=== PATIENT | male | born 1940 | race Caucasian/White ===

== ENCOUNTER 2023-09-09 10:10 | Emergency (ER) | payer MEDICARE, SELFPAY ==
[2023-09-09] VITALS (9 sets, daily range): BP systolic 152–191; BP diastolic 70–77; PULSE 53–91; RESP 12–24; TEMP 36.2–36.6; O2SAT 96–98; BMI 20.3
--- NOTE | 2023-09-09 10:11 | CT_ITS ---
We are attempting to reach an attending provider to discuss findings. An addendum with communication details will be sent when the communication is complete. EXAM: CT HEAD WITHOUT INTRAVENOUS CONTRAST CLINICAL INDICATION: Neuro deficit, acute, stroke suspected TECHNIQUE: Multiple axial images were obtained of the head without intravenous contrast. This CT exam was performed using one or more of the following dose reduction techniques: automated exposure control, adjustment of the mA and/or kV according to patient size, and/or use of iterative reconstruction technique. COMPARISON: No relevant prior studies available. FINDINGS: BRAIN AND EXTRA-AXIAL SPACES: 3 mm thick right parafalcine subdural hematoma is noted. No mass effect. No intraparenchymal or intraventricular hemorrhage. Areas of diminished white matter density noted within both cerebral hemispheres suggestive of chronic microvascular change. Prominence of the cortical sulci and ventricles related to volume loss change. BONES/JOINTS: Normal calvarium. SINUSES: Mild mucosal thickening of the right maxillary sinus. MASTOID AIR CELLS: Normal. Clear. CT/STROKE Brain/Head without Cont IMPRESSION: 1. 3 mm thick acute subdural right parafalcine hematoma without mass effect. 2. Senescent changes. Aspect score 10 Electronically Signed: Ladarius Villegas MD at 10:23 EST ,
--- NOTE | 2023-09-09 10:11 | EKG12_ITS ---
Test Reason : POSS STROKE Blood Pressure : / mmHG Vent. Rate : 076 BPM Atrial Rate : 076 BPM P-R Int : 184 ms QRS Dur : 092 ms QT Int : 382 ms P-R-T Axes : 066 -02 068 degrees QTc Int : 429 ms Normal sinus rhythm with sinus arrhythmia Normal ECG Confirmed by Cas Childers ([id number]), photograph editor DORCAS LOZANO ([id number]) on 09/10/2023 10:33:07 AM Referred By: Confirmed By:Cas Childers
--- NOTE | 2023-09-09 10:11 | CT_ITS ---
EXAM: CT ANGIOGRAPHY HEAD AND NECK WITH INTRAVENOUS CONTRAST CLINICAL INDICATION: Neuro deficit, acute, stroke suspected TECHNIQUE: [facility] [place]/head and neck CT angiography protocol performed with intravenous contrast. This CT exam was performed using one or more of the following dose reduction techniques: automated exposure control, adjustment of the mA and/or kV according to patient size, and/or use of iterative reconstruction technique. MIP reconstructed images were created and reviewed. CONTRAST: IV 100mL [id number] COMPARISON: No relevant prior studies available. FINDINGS: HEAD: RIGHT ANTERIOR CEREBRAL ARTERY: Normal. No occlusion or significant stenosis. Anterior communicating artery is present. No aneurysm. RIGHT MIDDLE CEREBRAL ARTERY: Normal. No occlusion or significant stenosis. No aneurysm. RIGHT POSTERIOR CEREBRAL ARTERY: Normal. No occlusion or significant stenosis. No aneurysm. RIGHT INTRACRANIAL INTERNAL CAROTID ARTERY: Normal. No significant stenosis. No dissection or occlusion. RIGHT INTRACRANIAL VERTEBRAL ARTERY: Normal. No significant stenosis. No dissection or occlusion. LEFT ANTERIOR CEREBRAL ARTERY: Normal. No occlusion or significant stenosis. No aneurysm. LEFT MIDDLE CEREBRAL ARTERY: Normal. No occlusion or significant stenosis. No aneurysm. LEFT POSTERIOR CEREBRAL ARTERY: Normal. No occlusion or significant stenosis. No aneurysm. LEFT INTRACRANIAL INTERNAL CAROTID ARTERY: Normal. No significant stenosis. No dissection or occlusion. LEFT INTRACRANIAL VERTEBRAL ARTERY: Normal. No significant stenosis. No dissection or occlusion. BASILAR ARTERY: Normal. No occlusion or significant stenosis. No aneurysm. OTHER VASCULATURE: No vascular malformation. NECK: RIGHT COMMON CAROTID ARTERY: Normal. No significant stenosis. No dissection or occlusion. RIGHT EXTRACRANIAL INTERNAL CAROTID ARTERY: Normal. No significant stenosis. No dissection or occlusion. RIGHT EXTERNAL CAROTID ARTERY: Normal. No occlusion. RIGHT EXTRACRANIAL VERTEBRAL ARTERY: Normal. No significant stenosis. No dissection or occlusion. LEFT COMMON CAROTID ARTERY: Normal. No significant stenosis. No dissection or occlusion. LEFT EXTRACRANIAL INTERNAL CAROTID ARTERY: Minimal calcification at the left carotid bulb. No significant stenosis. No dissection or occlusion. LEFT EXTERNAL CAROTID ARTERY: Normal. No occlusion. LEFT EXTRACRANIAL VERTEBRAL ARTERY: Normal. No significant stenosis. No dissection or occlusion. BRACHIOCEPHALIC AND SUBCLAVIAN ARTERIES: Unremarkable as visualized. No occlusion or significant stenosis. LUNG APICES: Unremarkable as visualized. HEAD and NECK: BONES/JOINTS: Normal. No discrete lytic or blastic abnormalities. SOFT TISSUES: Normal. CAROTID STENOSIS REFERENCE USING NASCET CRITERIA: % ICA stenosis = (1 - narrowest ICA diameter/diameter of distal cervical ICA) x 100. Mild - <50% stenosis. Moderate - 50-69% stenosis. Severe - 70-94% stenosis. Near occlusion - 95-99% stenosis. Occluded - 100% stenosis. CT/STROKE CTA Head AND Neck W/Con IMPRESSION: No acute findings in the arteries of the head and neck. Stable small right parafalcine subdural hematoma as previously described. N.B. : The above Results were Read Back by Ladarius Villegas MD to Matt Pete MD, and understanding confirmed on 09/09/2023 10:44:31 (ET). Electronically Signed: Ladarius Villegas MD at 10:45 EST ,
--- NOTE | 2023-09-09 10:14 | EDS_ITS ---
HPI History of Present Illness Chief Complaint: Stroke Alert Detail of Chief Complaint: Difficulty using left lower extremity Informant: patient and family Onset/Context/Timing Onset: Yesterday (1400) Context: Sudden Onset Timing: Continuous Quality and Location: Positive for Left Leg Weakness Onset: 1400 on September 07 Current Severity: Mild Maximum Severity: Mild Worsened by: Nothing Relieved by: Nothing Associated Symptoms Associated Symptoms: Negative for Headache, Nausea, Vomiting or Chest Pain Narrative Narrative: Patient 83-year-old male with history of leaky heart valves and prior stroke on baby aspirin a day. Cardiology recommended pacemaker however he declined. Patient's symptoms started yesterday. He is having difficulty using his left leg. He denies pain. He denies paresthesia, anesthesia. He denies headache, visual, ocular auditory symptoms. Nuys trouble with speech or swallowing. He denies cardiac or respiratory symptoms. Denies GI symptoms. Prior similar symptoms: No Recent Illness/Hospitalization: No PFSH PFSH Medical History (Updated 09/09/23 @ 10:[address] Matt Pete MD) Stroke Home Medications aspirin 81 mg chewable tablet 81 mg PO DAILY@0800 02/16/17 [History Last Taken Unknown] Allergy/AdvReac Type Severity Reaction Status Date / Time No Known Allergies Allergy Verified 09/09/23 10:18 Social History (Updated 09/09/23 @ 10:[address] Matt Pete MD) Smoking Status: Never smoker substance use type: does not use ROS ROS ED Constitutional Constitutional ED: Denies chills, fever(s), subjective or sweats Eyes Eyes: Denies blurry vision or change in vision ENT ENT ED: Denies ear pain, rhinorrhea or sore throat Cardiovascular Cardiovascular: Denies chest pain, palpitations, paroxysmal nocturnal dyspnea or racing heartbeat Respiratory/Chest Respiratory/Chest: Denies cough, dyspnea, dyspnea on exertion or paroxysmal nocturnal dyspnea Gastrointestinal Gastrointestinal: Denies abdominal pain, nausea or vomiting Musculoskeletal Musculoskeletal: Denies arthralgias, back pain, myalgias or neck pain Integumentary Denies rash Neurologic Neurologic: Reports weakness; Denies headache(s) or paresthesias Hematologic/Lymphatic Hematologic/Lymphatic: Denies easy bruising EXAM Physical Exam Const Vital Signs: 09/09/23 10:14 09/09/23 10:25 09/09/23 10:32 Temperature 97.1 F L Temperature Source Temporal Pulse Rate 59 L Respiratory Rate 16 Blood Pressure Blood Pressure Mean Pulse Ox 96 97 Oxygen Delivery Method Room Air Room Air Room Air 09/09/23 10:33 09/09/23 10:27 Temperature 97.1 F L 97.5 F L Temperature Source Temporal Temporal Pulse Rate 75 61 Respiratory Rate 20 H 12 Blood Pressure 191/70 H 187/72 H Blood Pressure Mean 110 110 Pulse Ox 97 98 Oxygen Delivery Method Room Air Room Air Positive well nourished and well developed General Appearance ED: well developed and NAD HEENT Reports moist mucous membranes atraumatic Eyes PERRL and EOMs intact bilaterally Eyes Narrative: There is no nystagmus. General Eye ED: Negative for pale conjunctiva or scleral icterus Neck no lymphadenopathy, supple and no JVD Chest Wall inspection of chest normal and palpation of chest normal Resp normal respiratory effort and clear to auscultation bilaterally Cardio Rate: regular rate Rhythm: regular rhythm Heart Sounds: S1 normal and S2 normal GI normal to inspection, nondistended, normoactive bowel sounds, soft to palpation, non-tender, non-distended and no masses Back/Spine no CVA tenderness Extremity normal to inspection General Extremety ED: Negative for deformity or edema General Extremity: Negative for deformity or edema Neuro oriented x3, CN's II-XII intact bilaterally and no sensory deficits noted [place] Coma Scale: document GCS findings Spontaneous Obeys Commands Oriented 15 Sensorium / Orientation: alert Speech: speech normal Gait (Neuro): Negative for normal gait Psych mental status grossly normal Skin no wounds General Skin Exam: Negative for jaundice Lesions: no lesions Rashes: no rashes NIHSS NIHSS Initial: 1a Level of Consciousness: 0 1b LOC Questions (Score 2 if aphasic/stupor): 0 1c LOC Commands (Only score 1st attempt): 0 2 Best Gaze (If aphasic, use reflexive mvmts.): 0 3 Visual: 0 4 Facial Palsy: 0 5 Motor Arm Right (UN = amputation/fusion): 0 5 Motor Arm Left: 0 6 Motor Leg Right: 0 6 Motor Leg Left: 0 7 Limb ataxia (Only + if out of proportion): 0 8 Sensory (Aphasia/stupor=0 or 1, coma=2): 0 9 Best Language: 0 10 Dysarthria (mute, coma=2, intubated=UN): 0 11 Extinction and Inattention (only scored if +): 0 Total Score: 0 MDM MDM MDM Narrative Medical decision making narrative: Patient gait is not normal. It is not ataxic. He appears to have weakness left lower extremity. Stroke alert was called from triage. Patient is able to walk on heels and toes. He is able to perform 1 legged squat right and left. Will need to assess for visual field cuts since this was not performed in triage. Stroke alert was called since he is within 24 hours. Suspect this is small v essel disease and not an LVO since his deficit is minimal. However with history of valvular heart disease prior stroke he may have significant atherosclerotic disease with hemodynamic significant narrowing and for this reason. Recommendation per [facility] will obtain CTA. Lab Data Labs: Laboratory Results - last 24 hr 09/09/23 10:18 WBC 6.5 RBC 3.85 L Hgb 12.2 L Hct 38.1 L MCV 99.0 H MCH 31.7 MCHC 32.0 RDW Std Deviation 42.7 RDW Coeff of Nguyen 11.8 Plt Count 160 MPV 10.4 Immature Gran % (Auto) 0.600 Neut % (Auto) 66.3 Lymph % (Auto) 21.4 Armstrong % (Auto) 7.7 Eos % (Auto) 3.5 Baso % (Auto) 0.5 Absolute Neuts (auto) 4.3 Absolute Lymphs (auto) 1.39 Nucleated RBC % 0 PT 13.8 INR 1.1 APTT 27.1 Radiography Diagnostic Testing: Clinical Impression(s) from Imaging Studies Brain CT 09/09/23 10:11 IMPRESSION: 1. 3 mm thick acute subdural right parafalcine hematoma without mass effect. 2. Senescent changes. Aspect score 10 Electronically Signed: Ladarius Villegas MD at 10:23 EST , ADDENDUM: 09/09/23 1032 IMPRESSION: 1. 3 mm thick acute subdural right parafalcine hematoma without mass effect. 2. Senescent changes. Aspect score 10 N.B. : The above Results were Read Back by Ladarius Villegas MD to Matt Pete MD, and understanding confirmed on 09/09/2023 10:26:02 (ET). Electronically Signed: Ladarius Villegas MD at 10:23 EST , Management Discussion w/another healthcare provider: Financial Underwriter (Spoke with Dr. Ontiveros who agrees there is a small subdural.), Radiologist (Received call by radiologist which reveals a small subdural. Patient recalls hitting his head. He was excepted by [facility].) and Other (ER to ER transfer, Dr. NOLEN is the accepting physician) Treatment and Re-Evaluation Narrative: Patient has elevated blood pressures. Hemorrhagic stroke order set was initiated. Patient does admit to trauma this morning. Symptoms started yesterday afternoon. He does not recall any head trauma yesterday. Stroke Documentation Questions Stroke Team Activated: Yes Reviewed Inclusion/Exclusion criteria: Yes IV Thrombolytic Administered: No No contraindications from thrombolytic administration: No Critical Care Time Critical Care Time: Yes Critical care time (excluding procedures): 30-74 minutes (31), Including time spent: (History, physical, documentation, discussion with patient and family), Discussing w/Patient &/or Family/Senior Financial Reporting Analyst, Discussing w/Consultants (Radiologist, [facility] neurologist, transfer center nurse), Arranging Admission or Transfer, Performing Direct Patient Care at Bedside and - (Blood pressure control with Cardene drip.) Discharge Plan Triage Chief Complaint: Stroke Alert ED Provider: Matt Pete Dx/Rx/DC Orders Clinical Impression: Acute subdural hematoma, Valvular heart disease, Hypertensive urgency, History of arterial ischemic stroke Prescriptions: No Action aspirin 81 MG tablet,chewable 81 mg PO DAILY@0800 Primary Care Provider: Hakeem Canales Referrals: Hakeem Canales MD [Primary Care Provider] - Disposition Disposition: Acute Care Hospital Discharge Location: [facility]
[2023-09-09 10:27] LABS: Absolute Lymphocyte Count 1.39 X10^3/uL (0.83-4.51); Absolute Neutrophil Count 4.3 X10^3/uL (2.0-7.7); Basophil# 0.03 X10^3/uL; Basophil% 0.5 % (0-1); Eosinophil# 0.23 X10^3/uL; Eosinophils% 3.5 % (0-5); Hematocrit 38.1 % (40-54); Hemoglobin 12.2 g/dL (13.0-16.5); Lymphocyte # 1.39 X10^3/ul (0.83-4.51); Lymphocyte % 21.4 % (19-41); Mean Corpuscular Hgb 31.7 pg (27.0-32.0); Mean Platelet Vol. 10.4 fl (6.2-12.0); Monocyte% 7.7 % (0-10); NRBC Flagged by Analyzer 0 % (0-5); Neutrophil # 4.32 X10^3/uL (2.7-7.7); Neutrophil % 66.3 % (47-70); Platelet Count 160 K/mm3 (150-450); RBC Distribution Width CV 11.8 % (11.6-14.6); RBC Distribution Width SD 42.7 fl (35.1-43.9); Red Blood Count 3.85 M/mm3 (4.6-6.2); White Blood Count 6.5 K/mm3 (4.4-11.0)
--- OUTSIDE RECORDS SUMMARY | 2023-09-09 10:27 | XMS RPT_ITS | CCD ---
Author Name Unknown Address [address] [facility] [place] [address] Organization [facility] Care Team Providers Care Turkey Roll Maker Name Role Phone Hakeem Stevens Unavailable Unavailable Unavailable Hakeem Stevens MD Primary Care Provider Hakeem Stevens MD Unavailable [phone] MD HAKEEM STEVENS Attending MD HAKEEM Raines Primary Care UnavailDr. Oz Beaver Attending Unavailable Sonu, Dr. Clinton Referring Unavailable Ally, Dr. Hakeem Verdugo Primary Care Unavailab cristi Stevens, Dr. Hakeem Verdugo Attending Unavailab cristi Stevens, Dr. Hakeem Verdugo Referring Unavailab cristi Stevens, Dr. Hakeem Verdugo Primary Care Unavailab HAKEEM Sanford Attending Unavailable HAKEEM STEVENS Primary Care Unavailable MARCO ANTONIO SPANGLER Attending Unavail able HAKEEM STEVENS Primary Care Unavailable BENNIE MAY II Attending HAKEEM Raines Primary Care Unavailable Medications Current Medications Medication Drug Class(es) Dates Sig (Normalized) Sig (Original) glucosamine hydrochloride 750 mg oral tablet (8 sources) take 1 tablet by mouth twice daily glucosamine HCl 750 mg tablet Take 1 tablet by mouth 2 times a day. 0 Active Completed/Discontinued Medications Medication Drug Class(es) Dates Sig (Normalized) Sig (Original) amoxicillin 500 mg oral capsule (3 sources) Penicillin-class Antibacterial Start: 07-06-2022 End: 11-17-2022 take 1 capsule by mouth three times daily Amoxicillin 500 MG Oral Capsule TAKE 1 CAPSULE 3 times daily Quantity: 30 Refills: 2 Ordered: 07-Aug-2022 Hakeem Stevens MD Start : 06-Jul-2022 End : 17-Nov-2022 Complete aspirin 81 mg delayed release oral tablet (10 sources) Platelet Aggregation Inhibitor, Nonsteroidal Anti-inflammatory Drug Start: 07-05-2021 take 1 tablet by mouth once daily Aspirin 81 MG Oral Tablet Delayed Release TAKE 1 TABLET DAILY DIRECTED. Quantity: 30 Refills: 5 Ordered: 05-Jul-2021 DO Start : 05-Jul-2021 Active Problems Active Problems Problem Classification Problem Date Documented Date Episodic/Chronic Acute cerebrovascular disease (8 sources) Cerebrovascular accident; Translations: [Cerebral artery occlusion, unspecified with cerebral infarction] Chronic Cardiac dysrhythmias (6 sources) Bradycardia; Translations: [Other specified cardiac dysrhythmias] Episodic Cataract (16 sources) Bilateral senile combined form cataracts of eyes; Translations: [Other and combined forms of senile cataract] Onset: 07-05-2021 07-10-2023 Chronic Chronic kidney disease (9 sources) Chronic kidney disease stage 3A ; Translations: [Chronic kidney disease, Stage III (moderate)] Onset: 07-10-2023 07-10-2023 Chronic Chronic kidney disease (2 sources) Chronic kidney disease; Translations: [Chronic kidney disease, stage 3a (CMS/HCC)] Onset: 07-10-2023 Disorders of teeth and jaw (3 sources) Chronic gingivitis; Translations: [Chronic gingivitis, plaque induced] Chronic Genitourinary symptoms and ill-defined conditions (2 sources) Nocturia; Translations: [Nocturia] Onset: 07-10-2023 Episodic Heart valve disorders (7 sources) Nonrheumatic mitral (valve) insufficiency; Translations: [Moderate mitral insufficiency] Onset: 07-10-2023 07-10-2023 Chronic Hyperplasia of prostate (12 sources) Nocturia due to benign prostatic hypertrophy; Translations: [Hypertrophy (benign) of prostate with urinary obstruction and other lower urinary tract symptoms (LUTS)] Onset: 07-10-2023 07-10-2023 Chronic Inflammation; infection of eye (except that caused by tuberculosis or sexually transmitteddisease) (5 sources) Bilateral punctate keratitis of eyes; Translations: [Punctate keratitis] Chronic Other aftercare (13 sources) Patient encounter status; Translations: [Long-term (current) use of other medications] Episodic Other circulatory disease (10 sources) History of cerebrovascular accident; Translations: [Personal history of transient ischemic attack (TIA), and cerebral infarction without residual deficits] Onset: 07-10-2023 07-10-2023 Episodic Other circulatory disease (2 sources) Personal history of transient ischemic attack (TIA), and cerebral infarction without residual deficits; Translations: [Personal history of transient ischemic attack (TIA), and cerebral infarction without residual deficits] Onset: 07-10-2023 Episodic Other connective tissue disease (1 source) Other specified soft tissue disorders; Translations: [Other specified soft tissue disorders] Onset: 11-16-2022 Episodic Other ear and sense organ disorders (3 sources) Impacted cerumen; Translations: [Impacted cerumen] Episodic Other eye disorders (7 sources) Constricted pupil; Translations: [Miosis (persistent), not due to miotics] Onset: 07-10-2023 07-10-2023 Chronic Other eye disorders (2 sources) Miosis; Translations: [Miosis] Onset: 07-10-2023 Chronic Varicose veins of lower extremity (7 sources) Varicose veins of lower limb co-occurrent with edema; Translations: [Varicose veins of right lower extremity with other complications] Onset: 11-16-2022 11-10-2022 Episodic Past or Other Problems Problem Classification Problem Date Documented Da te Episodic/Chronic Unclassified (2 sources) Onset: 11-10-2022 Resolved: 07-10-2023 11-10-2022 Results Test Name Value Interpretation Reference Range Facil ity Vital Signs Date Time Vital Sign Value Performing Clinician Faci lity 07-10-2023 08:00-0500 Body height 162.6 cm Hakeem Stevens MD Work Phone: [facility] 07-10-2023 08:00-0500 Body mass index (BMI) [Ratio] 21.63 kg/m2 Hakeem Stevens MD Work Phone: [facility] 07-10-2023 08:00-0500 Body weight 57.15 kg Hakeem Stevens MD Work Phone: [facility] 07-10-2023 08:00-0500 Diastolic blood pressure 70 mm[Hg] Hakeem Stevens MD Work Phone: [facility] 07-10-2023 08:00-0500 Heart rate 62 /min Hakeem Stevens MD Work Phone: [facility] 07-10-2023 08:00-0500 SaO2% (BldA) [Mass fraction] 96 % Hakeem Stevens MD Work Phone: [facility] 07-10-2023 08:00-0500 Systolic blood pressure 134 mm[Hg] Hakeem Stevens MD Work Phone: [facility] 11-17-2022 13:32-0400 Body height 162.56 cm Hakeem Stevens Work Phone: PS-Yanpramsjk-[address]yp[address] Work Phone: 11-17-2022 13:32-0400 Body mass index (BMI) [Ratio] 21.13 kg/m2 Hakeem Stevens Work Phone: CA-Amqdpzboiw-Clyjp [address] Work Phone: 11-17-2022 13:32-0400 Body surface area Derived from formula 1.59 m2 Hakeem Stevens Work Phone: NY-Gbjyxifxrw-Hzjei [address] Work Phone: 11-17-2022 13:32-0400 Body weight 55.85 kg Hakeem Stevens Work Phone: FO-Ssapakltew-Wbsdy [address] Work Phone: 11-17-2022 13:32-0400 Diastolic blood pressure 78 mm[Hg] Hakeem Stevens Work Phone: LB-Wqxnnkebzn-Nmknz [address] Work Phone: 11-17-2022 13:32-0400 Heart rate 63 /min Hakeem Stevens Work Phone: RW-Wximlwjnvw-Ubmez [address] Work Phone: 11-17-2022 13:32-0400 SaO2% (BldA) [Mass fraction] 97 % Hakeem Paintinger Work Phone: LZ-Vfgpqvdgcp-Bjlda [address] Work Phone: 11-17-2022 13:32-0400 Systolic blood pressure 158 mm[Hg] Hakeem Sean Paintinger Work Phone: UD-Wabifhlgtc-Yjhga [address] Work Phone: 11-10-2022 15:11-0400 Body height 162.6 cm Marco Antonio Spangler MD MPH Work Phone: [facility] 11-10-2022 15:11-0400 Body mass index (BMI) [Ratio] 21.34 kg/m2 Marco Antonio Spangler MD MPH Work Phone: [facility] 11-10-2022 15:11-0400 Body weight 56.38 kg Marco Antonio Spangler MD MPH Work Phone: [facility] 11-10-2022 15:11-0400 Diastolic blood pressure 85 mm[Hg] Marco Antonio Spangler MD MPH Work Phone: [facility] 11-10-2022 15:11-0400 Heart rate 56 /min Marco Antonio Spangler MD MPH Work Phone: [facility] 11-10-2022 15:11-0400 SaO2% (BldA) [Mass fraction] 95 % Marco Antonio Spangler MD MPH Work Phone: [facility] 11-10-2022 15:11-0400 Systolic blood pressure 154 mm[Hg] Marco Antonio Spangler MD MPH Work Phone: [facility] 07-06-2022 09:44-0500 Body height 162.56 cm Hakeem Stevens Work Phone: [facility] Work Phone: 07-06-2022 09:44-0500 Body mass index (BMI) [Ratio] 21.46 kg/m2 Hakeem O Stevens Work Phone: [facility] Work Phone: 07-06-2022 09:44-0500 Body surface area Derived from formula 1.6 m2 Hakeem O Stevens Work Phone: [facility] Work Phone: 07-06-2022 09:44-0500 Body weight 56.7 kg Hakeem O Stevens Work Phone: [facility] Work Phone: 07-06-2022 09:44-0500 Diastolic blood pressure 70 mm[Hg] Hakeem O Stevens Work Phone: [facility] Work Phone: 07-06-2022 09:44-0500 Heart rate 56 /min Hakeem O Stevens Work Phone: [facility] Work Phone: 07-06-2022 09:44-0500 Systolic blood pressure 144 mm[Hg] Hakeem O Stevens Work Phone: [facility] Work Phone: 10-18-2021 09:16-0400 Body height 162.56 cm Hakeem O Stevens Work Phone: LC-Mjprobgvht-Nwawr [address] Work Phone: 10-18-2021 09:16-0400 Body mass index (BMI) [Ratio] 22.36 kg/m2 Hakeem O Stevens Work Phone: WZ-Jwmkfdfstz-Wdfpn [address] Work Phone: 10-18-2021 09:16-0400 Body surface area Derived from formula 1.63 m2 Hakeem O Stevens Work Phone: RO-Hnkgcjegth-Ecgty nd [address] Work Phone: 10-18-2021 09:16-0400 Body weight 59.08 kg Hakeem O Stevens Work Phone: ZF-Mkijjgdfdr-Kzvkv nd [address] Work Phone: 10-18-2021 09:16-0400 Diastolic blood pressure 82 mm[Hg] Hakeem O Stevens Work Phone: OG-Dsvwaiifiu-Rijjh nd [address] Work Phone: 10-18-2021 09:16-0400 Heart rate 54 /min Hakeem O Stevens Work Phone: PP-Xtypbfvqmr-Rqlks nd [address] Work Phone: 10-18-2021 09:16-0400 SaO2% (BldA) [Mass fraction] 97 % Hakeem O Stevens Work Phone: TJ-Kkximkdaxi-Sjqki nd [address] Work Phone: 10-18-2021 09:16-0400 Systolic blood pressure 124 mm[Hg] Hakeem O Stevens Work Phone: WE-Maabzevmhw-Jekxy nd [address] Work Phone: 08-16-2021 15:49-0500 Body height 160.02 cm Hakeem O Stevens Work Phone: QI-Jrkedhjtaz-Vjihp nd [address] Work Phone: 08-16-2021 15:49-0500 Body mass index (BMI) [Ratio] 23.21 kg/m2 Hakeem O Stevens Work Phone: DJ-Anfsngdrwl-Vhvkr [address] Work Phone: 08-16-2021 15:49-0500 Body surface area Derived from formula 1.62 m2 Hakeem O Stevens Work Phone: DA-Decytobzmb-Qpgat nd [address] Work Phone: 08-16-2021 15:49-0500 Body temperature 97.5 [degF] Hakeem Sean ArchibaldStevens Work Phone: RH-Zamimsttjj-Ghdvn nd [address] Work Phone: 08-16-2021 15:49-0500 Body weight 59.42 kg Hakeem O Stevens Work Phone: ML-Gloeekbvux-Hdaic nd [address] Work Phone: 08-16-2021 15:49-0500 Diastolic blood pressure 68 mm[Hg] Hakeem O Stevens Work Phone: VB-Inrbkpuuiv-Lzpnj nd [address] Work Phone: 08-16-2021 15:49-0500 Heart rate 59 /min Hakeem Sean ArchibaldStevens Work Phone: WB-Cwyyaklcfp-Zhcvd nd [address] Work Phone: 08-16-2021 15:49-0500 SaO2% (BldA) [Mass fraction] 97 % Hakeem Sean ArchibaldStevens Work Phone: VE-Ciexudyzqk-Fnzaw nj [address] Work Phone: 08-16-2021 15:49-0500 Systolic blood pressure 160 mm[Hg] Hakeem Sean ArchibaldStevens Work Phone: WZ-Xbxewoygul-Hnshw nj [address] Work Phone: 07-05-2021 13:05-0500 Body height 162.56 cm Hakeem Sean Stevens Work Phone: [facility] Work Phone: 07-05-2021 13:05-0500 Body mass index (BMI) [Ratio] 21.8 kg/m2 Hakeem O Stevens Work Phone: [facility] Work Phone: 07-05-2021 13:05-0500 Body surface area Derived from formula 1.61 m2 Hakeem O Stevens Work Phone: [facility] Work Phone: 07-05-2021 13:05-0500 Body weight 57.61 kg Hakeemnati Archibaldyder Work Phone: [facility] Work Phone: 07-05-2021 13:05-0500 Diastolic blood pressure 68 mm[Hg] Hakeem O Ally Work Phone: [facility] Work Phone: 07-05-2021 13:05-0500 Heart rate 60 /min Hakeem Archibaldyder Work Phone: [facility] Work Phone: 07-05-2021 13:05-0500 Systolic blood pressure 140 mm[Hg] Hakeem Archibaldyder Work Phone: [facility] Work Phone: Encounters Encounter Date Encounter Type Care Provider Facility Start: 07-25-2023 End: 07-25-2023 ambulatory BENNIE DEEPIKA Facility:[facility] Start: 07-10-2023 End: 07-10-2023 ambulatory [facility] Start: 07-10-2023 End: 07-10-2023 Encounter for general adult medical examination without abnormal findings [facility] Start: 07-10-2023 End: 07-10-2023 Assay of hemosiderin, quant Hakeem Stevens MD Work Phone: [facility] Work Phone: Start: 07-10-2023 End: 07-10-2023 Office outpatient visit 25 minutes Hakeem Stevens MD Work Phone: [facility] Procedures Date Procedure Procedure Detail Performing Clinician Start: 11-10-2022 Follow-up visit Start: 07-07-2021 Lipid 1996 panel - S osman or Plasma Marco Antonio Spangler MD MPH Work Phone: Cataract surgery Hakeem castro Work Phone: Plan of Treatment Date Care Activity Detail Author Start: 07-07-2026 Lipid panel Lipid Panel [facility] Start: 11-23-2023 FUV, Provider: Oz Ascencio, Status: Pen, Time: 1:00 PM FUV, Provider: Oz Ascencio, Status: Pen, Time: 1:00 PM KR-Yvouuyiaij-[address] Work Phone: Start: 11-23-2023 End: 11-23-2023 Patient encounter procedure 11/23/2023 1:00 PM EDT Office Visit [facility] [address] [place] [id number] Oz Ascencio MD [address], [facility] [address] [place], [place] [id number] [facility] Start: 07-10-2023 End: 07-10-2024 CBC panel - Blood by Automated count CBC Lab Routine Stage 3a chronic kidney disease (CMS/HCC) Expected: 07/10/2023 (Approximate), Expires: 07/10/2024 [facility] Service Area Work Phone: Immunizations Immunization Date Immunization Notes Care Provider Fa stefan 12-30-2020 Moderna COVID-19 Vac cine 100 MCG/0.5ML Intramuscular Suspension Hakeem Stevens Work Phone: [facility] Work Phone: Payers Date Payer Category Payer Medicare [employer] MEDICARE [employer] G[employer] CHOICE [id number] 2018-Present [address] [address] [place] [address] [id number] 2018 Private Health Insurance [id number] 1940 Unknown [id number] 1940 Unknown [id number] 1940 Unknown [id number] 1940 Unknown [id number] 1940 Unknown [id number] Unknown [employer] G[employer] CHOICE Social History Date Type Detail Facility Start: 11-10-2022 End: 07-10-2023 Never a smoker Never a smoker [facility] Work Phone: Start: 11-10-2022 Tobacco smoking stat NHIS Never smoked tobacco [facility] Work Phone: Start: 11-10-2022 Tobacco use and exposure Smokeless tobacco non-user [facility] Work Phone: Start: 11-10-2022 End: 07-10-2023 Alcohol intake Current drinker of alcohol (finding) [facility] Work Phone: Start: 11-10-2022 End: 07-10-2023 Tobacco use panel [facility] Work Phone: Start: 11-10-2022 Alcohol Comment 1 a day [facility] Work Phone: Start: 1940 Sex Assigned At Not on file [facility] Work Phone: Start: 10-31-2022 End: 07-10-2023 Exposure to SARS-CoV-2 (event) Not sure [facility] Medical Equipment Procedure Code Equipment Code Equipment Origin al Text Equipment Identifier Dates Lens, Intraocula r [id number] 21.5 Case [id number] Start: 08-04-2021 Clinical Notes 08-16-2001 to 07-25-2023 Hakeem Stevens MD - 07/10/2023 8:00 AM Trinity Spangler MD MPH - 11/10/2022 3:00 PM EDT Note Date & Type Note Facility 07-25-2023 Note HNO ID: [id number] Author: BENNIE MAY II, OD Service: ? 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 Monitor for progression in one year. 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 H52.4 Presbyopia Comment: Patient uses a magnifier on occasion for near. 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 Ocular exam unremarkable for pemphigoid. Recommend use of Systane Complete daily for dryness. I have confirmed and edited as necessary the relevant ophthalmic history, ROS, and the neuro exam findings as obtained by others. I have seen and examined Eladia Farr. I have discussed the case and the management of this patient's care with the Resident/Fellow, if applicable. I also have reviewed and agree with the assessment and plan as stated above and agree with all of its relevant components. Bennie May II, [facility] 07-10-2023 History of Present illness Narrative Subjective Reason for Visit: Eladia Farr is an 83 y.o. male here for a Medicare Wellness visit. Past Medical, Surgical, and Family History reviewed and updated in chart. Reviewed all medications by prescribing practitioner or clinical pharmacist (such as prescriptions, OTCs, herbal therapies and supplements) and documented in the medical record. HPI No visits to ER or Hospital in the last year. Only medication is ASA. Had CVA 20 years ago. Has been told he has some leaky valves. BPH - nocturia X 2. No daytime issues Cataract on left and Pseudophakia on the right. Constricted pupil on right CKD 3a GFR 49 a year ago. Will check today. No bloodl. No NSAID. Varicose veins have been not a problem. Potassium helps the aching..right leg edema. Living Will and DPA - Annie. Declines immunizations Patient Care Team: Hakeem Stevens MD as PCP - General Hakeem Stevens MD as PCP - [employer]age PCP Review of Systems Objective Vitals: BP 134/70 (BP Location: Left arm, Patient Position: Sitting) Pulse 62 Ht 1.626 m (5' 4 ) Wt 57.2 kg (126 lb) SpO2 96% BMI 21.63 kg/m Physical Exam Vitals reviewed. Constitutional: General: He is not in acute distress. Appearance: Normal appearance. HENT: Head: Normocephalic. Right Ear: Tympanic membrane, ear canal and external ear normal. Left Ear: Tympanic membrane, ear canal and external ear normal. Nose: Nose normal. Mouth/Throat: Pharynx: Oropharynx is clear. Eyes: Extraocular Movements: Extraocular movements intact. Conjunctiva/sclera: Conjunctivae normal. Comments: Right pupil slightly smaller than left Neck: Vascular: No carotid bruit. Cardiovascular: Rate and Rhythm: Normal rate and regular rhythm. Pulses: Normal pulses. Heart sounds: Normal heart sounds. No murmur heard. Comments: Varicose veins not tender Pulmonary: Effort: Pulmonary effort is normal. No respiratory distress. Breath sounds: Normal breath sounds. Abdominal: General: Abdomen is flat. Bowel sounds are normal. There is no distension. Palpations: Abdomen is soft. There is no mass. Tenderness: There is no abdominal tenderness. Musculoskeletal: Cervical back: Normal range of motion and neck supple. No tenderness. Right lower le+ Edema present. Left lower leg: No edema. Lymphadenopathy: Cervical: No cervical adenopathy. Skin: General: Skin is warm and dry. Findings: No rash. Neurological: General: No focal deficit present. Mental Status: He is alert and oriented to person, place, and time. Psychiatric: Mood and Affect: Mood normal. Thought Content: Thought content normal. Judgment: Judgment normal. 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 male who presents for Sick (Right Leg Swollen. Doesn't recall when it started but denies it bothering him. Denies sweeping. Denies any injury to the leg or falling. ). HPI Reports last week someone commented about swelling in his right lower extremity. Does not think he noticed it prior to that. Denies calf pain. He is very active and mobile. Has not had any recent long distance travel. Never had a history of DVT. Plan: US for DVT eval. Likely due to varicose veins. Recommended compression stockings. Discussed about the potential complications of varicose veins. Offered referral to vascular surgeon. They will let us know if they decide and I will put in the referral then. Recommended to seek immediate medical attention if acute worsening of symptoms. Review of Systems ROS negative except discussed above in HPI. Vitals: 11/10/22 1511 BP: 154/85 Pulse: 56 SpO2: 95% Objective Physical Exam Right lower extremity edema noticed. More than left. Significant varicose veins noticed in bilateral lower extremities- more on the right than left. Assessment/Plan Eladia was seen today for sick. 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 (Primary) - Vascular US upper extremity venous duplex right; Future Follow up as needed Marco Antonio Spangler MD MPH documented in this encounter [facility] Work Phone: 10-25-2021 History of Present illness Narrative 82-year-old gentleman with a medical history of CVA, chronic kidney disease, who has been following with EP for asymptomatic bradycardia here to establish care regarding the following conditions:Problem #1 abnormal echocardiogram-Echocardiogram dated 10/25/2021 showed preserved biventricular function and mild-moderate mitral regurgitation-Mild aortic regurgitation was also notedProblem #2 asymptomatic bradycardia-Patient follows with EPCurrently denies any chest pain or shortness of breath. Denies any orthopnea/PND/lower extremity edema. Denies any dizziness or lightheadedness. Notes that he has had bradycardia for about 30 years. [place]Rtlps[facility] [employer] Work Phone: 07-05-2006 History of Present illness Narrative APPLICATIONS ANALYST to AFPWas patient here many years ago and no medical care sinceDid have broken right forearm from a tire blowing up about 15 years agoCVA about 20-30 years agoWas numb and weak on left. Was given streptokinase and was resolved by the time he got to the hospitalNow to have eye surgery for cataract and needs to have medical check for thatHas been healthyNo meds except ASA 81 dailyDoes not know cholesterol but takes Lookeba - 3 FA and B12 and D3.Systane for dry eyes as well as Fluorometholone. [facility] Work Phone: 10-18-2001 History of Present illness Narrative 81-year-old man with a history of CVA, CKD stage III, cataract status post surgery of right presenting for follow up. He reports that since his last visit he has been feeling well, denies any fatigue, CP, SOB, syncope or dizziness.Bradycardia History:Patient states he has had a low heart rate for the last 20 years. He denies any dizziness, chest pain, shortness of breath consciousness or palpitations. 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 He denies any previous history of syncope and states ambulates well and has never had a fall of unknown etiology.He denies any tobacco use, reports drinking 1 can of bud light.A 12 point ROS was done, and negative unless otherwise stated in the HPI. [facility] [employer] Work Phone: 08-24-2001 History of Present illness Narrative 81-year-old man with a history of CVA, CKD stage III, cataract status post surgery of right being referred from primary care physician for bradycardia.Patient states he has had a low heart rate for the last 20 years. He denies any dizziness, chest pain, shortness of breath consciousness or palpitations. 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 He denies any previous history of syncope and states ambulates well and has never had a fall of unknown etiology.He denies any tobacco use, reports drinking 1 can of bud light.A 12 point ROS was done, and negative unless otherwise stated in the HPI. [facility] Work Phone: 08-16-2001 History of Present illness Narrative 81-year-old man with a history of CVA, CKD stage III, cataract status post surgery of right being referred from primary care physician for bradycardia.Patient states he has had a low heart rate for the last 20 years. He denies any dizziness, chest pain, shortness of breath consciousness or palpitations. 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 He denies any previous history of syncope and states ambulates well and has never had a fall of unknown etiology.He denies any tobacco use, reports drinking 1 can of bud light.A 12 point ROS was done, and negative unless otherwise stated in the HPI. [facility] [employer] Work Phone: Chief complaint Narrative -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
[2023-09-09 10:37] LABS: International Normalized Ratio 1.1; Partial Thromboplast Time 27.1 Seconds (24.1-36.2); Prothrombin Time (Protime)PT. 13.8 SECONDS (11.7-14.9)
[2023-09-09] MEDS: hydrALAZINE 20 MG/ML Vial IV ×2 (10:37→11:03)
--- NOTE | 2023-09-09 10:44 | ED.RN ---
RA CALLED, ETA IS WITHIN THE HOUR (BY [phone])
[2023-09-09 10:45] LABS: Anion Gap 2 (5-15); BUN 32 mg/dL (7-18); BUN/Creat Ratio 19.3 RATIO (10-20); Calcium,Total 8.7 mg/dL (8.5-10.1); Chloride 110 mmol/L (98-107); Creatinine, Serum 1.66 mg/dL (0.70-1.30); EST Glomerular Filtration Rate 42 mL/min (>60); Est Glom Filt Rate - Afr Amer 51 mL/min (>60); Glucose 103 mg/dL (74-106); Potassium 4.6 mmol/L (3.5-5.1); Sodium Level 140 mmol/L (136-145); Troponin-I HS 35 pg/mL (3.0-78.0)
--- NOTE | 2023-09-09 10:45 | RAD_ITS ---
EXAM: XR CHEST, 1 VIEW CLINICAL INDICATION: Neuro deficit, acute, stroke suspected TECHNIQUE: Frontal view of the chest. COMPARISON: XR Chest dated 02/16/2017 FINDINGS: LUNGS AND PLEURAL SPACES: Normal. No consolidation or edema. No pneumothorax. No effusion. HEART: Normal heart size. MEDIASTINUM: No mediastinal or hilar mass. BONES/JOINTS: No acute abnormality. RAD/Chest 1 View IMPRESSION: No acute cardiopulmonary abnormality. No interval change. Electronically Signed: Ladarius Villegas MD at 11:07 EST ,
[2023-09-09 10:47] LABS: Bedside Glucose 98 mg/dL (74-106)
== END 2023-09-09 11:41 | disposition short-term general hospital (02) ==
PROVIDERS: Emergency Provider Emergency Medicine; PCP Family Medicine; Visit Provider Emergency Medicine
DX: I62.01 Nontraumatic acute subdural hemorrhage (principal); I16.0 Hypertensive urgency; Z79.82 Long term (current) use of aspirin; Z86.73 Personal history of transient ischemic attack (TIA), and cerebral infarction without residual deficits
CPT/HCPCS: 70450; 70496; 70498; 71045; 80048; 82962; 84484; 85025; 85610; 85730; 93005; 99285; Q9967; A4216

== ENCOUNTER 2023-09-14 18:35 | Inpatient (IN) | payer MEDICARE, SELFPAY ==
--- NOTE | 2023-09-14 19:14 | HP.PCM_ITS ---
[facility] - General General Date of Admission: 09/14/23 Date of Service: 09/14/23 HPI Narrative ELADIA KNAPP, is a 83-year-old M with a past medical history of remote CVA, hypertension, BPH, leaky heart valves and chronic kidney disease stage III who presented to the emergency department at [facility] on 09/09/2023 complaining of difficulty using his left leg, numbness in the left leg and falls. He normally walks without an assistive device and is still working. NIHSS was 0 at presentation to the emergency department. That being said his gait was not normal. He had weakness in his left leg but had no drift on the NIHSS. Significant lab at presentation to the emergency department included a hemoglobin of 12.2. Noncontrast CT brain showed a 3 mm thick acute subdural right parafalcine hematoma without mass effect. The ER physician was in contact with teleneurology at [facility]. The pt admitted to hitting his head that morning but, the leg weakness started the day prior to him hitting his head. BP's were elevated in the ED (180's/80's). Hemorrhagic stroke order set was initiated and he was transferred to [facility]. MRI at [facility] showed a small acute infarct involving the right basal ganglia and adjacent right frontal white matter. 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 Echocardiogram was negative for source of emboli. He was evaluated by neurovascular and they felt the stroke was likely secondary to hypertension and small vessel disease with subdural hematoma likely secondary to trauma from falls/hitting his head. Subdural hematoma remains stable and he required no interventions. He was started on aspirin, Lipitor and amlodipine. He was also started on Flomax for symptoms of BPH. He was also placed on a 7- day course of Keppra for seizure prophylaxis. Therapy recommended discharge to acute inpatient rehab. He was admitted to the acute inpatient rehab unit at [facility] on 09/14/2023 for 3 hours of therapy daily to restore function/independence at or near his level prior to the stroke/subdural hematoma. He will follow-up in the neurovascular clinic at [facility] in 4 to 6 weeks and he was prescribed a 30-day event monitor to help evaluate for paroxysmal arrhythmias. There is documentation in the notes obtained from [facility] that his philosophy faculty member had recommended a pacer maker but he declined. Echocardiogram at [facility] showed the lef t ventricle to be of normal size with an ejection fraction of 65 to 70%. Diastolic function was normal. The right ventricle was normal in size and systolic function. There was no atrial enlargement. He had mild mitral regurgitation and mild aortic regurgitation. The estimated right ventricular systolic pressure was normal at 21. PFSH Medical History (Updated 09/18/23 @ 18:[address] Lorraine Amador, DO) Aortic regurgitation BPH associated with nocturia Chronic renal failure, stage 3b Left inguinal hernia Mitral regurgitation Remote history of stroke Subdural hematoma Home Medications aspirin 81 mg chewable tablet 81 mg PO DAILY@0800 heart health 02/16/17 [History Last Taken 09/14/23 08:45] acetaminophen 500 mg tablet 1,000 mg PO Q8H PRN PAIN 1-10 AND FEVER 09/14/23 [History Last Taken Unknown] aluminum-mag hydroxide-simethicone 200 mg-200 mg-20 mg/5 mL oral susp (Advanced Antacid-Antigas) 5 ml PO Q6H PRN indigestion 09/14/23 [History Last Taken Unknown] amlodipine 10 mg tablet 10 mg PO DAILY heart 09/14/23 [History Last Taken 09/14/23 08:45] atorvastatin 40 mg tablet 40 mg PO QHS cholesterol 09/14/23 [History Last Taken 09/13/23 20:35] ferrous sulfate 325 mg (65 mg iron) tablet (Feosol) 325 mg PO DAILY supplement 09/14/23 [History Last Taken Unknown] glucosamine sulfate 750 mg tablet (Paris) 750 mg PO BID supplement 09/14/23 [History Last Taken Unknown] hydralazine 10 mg tablet 10 mg PO Q4H PRN hypertension 09/14/23 [History Last Taken Unknown] levetiracetam 500 mg tablet (Keppra) 500 mg PO Q12H seizures 09/14/23 [History Last Taken 09/14/23 08:45] melatonin 3 mg capsule 3 mg PO QHS sleep 09/14/23 [History Last Taken Unknown] polyethylene glycol 3350 17 gram/dose oral powder (ClearLax) 17 g PO DAILY constipation 09/14/23 [History Last Taken Unknown] tamsulosin 0.4 mg capsule (Flomax) 0.4 mg PO DAILY bladder 09/14/23 [History Last Taken Unknown] Allergy/AdvReac Type Severity Reaction Status Date / Time No Known Allergies Allergy Verified 09/09/23 10:18 Social History (Updated 09/17/23 @ 11:[address] Lorraine Amador, ) household members: spouse housing: house Smoking Status: Never smoker alcohol intake: never substance use type: does not use ROS Constitutional Constitutional: Reports weakness; Denies anorexia or fatigue Eyes Eyes: Denies change in vision ENT HEENT: Reports abnormal hearing Cardiovascular Cardiovascular: Denies chest pain, edema, orthopnea, palpitations, paroxysmal nocturnal dyspnea or syncope Respiratory/Chest Respiratory/Chest: Denies cough, shortness of breath at rest or shortness of breath with exertion Gastrointestinal Gastrointestinal: Denies abdominal pain, constipation, diarrhea, dyspepsia, hematochezia, nausea or vomiting Genitourinary Genitourinary: Reports nocturia and other Details: Denies dribbling and a slow stream. He sometimes has difficulty getting started. ; Denies dysuria Musculoskeletal Musculoskeletal: Reports joint stiffness; Denies back pain or neck pain Integumentary Integumentary: Reports dry skin; Denies jaundice or rash Neurologic Neurologic: Reports abnormal gait and focal weakness; Denies abnormal speech, confusion, dizziness, headache(s), numbness or seizures Psychiatric Psychiatric: Denies anxiety or depression Endocrine Endocrinology: Denies change in body appearance, polydipsia or polyuria Hematologic/Lymphatic Hematologic/Lymphatic: Reports easy bleeding Indicators for Scoring Admitted with or Primary Diagnosis of CVA/Stroke: Yes Hx of CVA/Stroke: Yes Modified Hanny Score MRS Score at time of Evaluation: 3-Moderate disability NIHSS NIHSS 1a. Level of Consciousness: Alert; keenly responsive 1b. LOC Questions: Answers BOTH questions correctly. 1c. LOC Commands: Performs both tasks correctly. 2. Best Gaze: Normal 3. Visual: No visual loss 4. Facial Palsy: Normal symmetrical movements 5a. Left Arm: No drift; arm holds 90 (or 45) degrees for full 10 seconds 5b. Right Arm: No drift; arm holds 90 (or 45) degrees for full 10 seconds 6a. Left Leg: Drift; leg falls by the end of 5-seconds, but does not hit bed 6b. Right Leg: No drift; leg holds 30-degree position for full 5 seconds 7. Limb Ataxia: Present in 2 limbs (mild ataxia with the laeft arm and the left leg) 8. Sensory: Normal; no sensory loss 9. Best Language: No aphasia; normal 10. Dysarthria: Normal 11. Extinction and Inattention: No abnormality Total: 3 Stroke Questions Stroke Team Activated: No Physical Exam Const alert, oriented x3 and no apparent distress Constitutional Narrative: Pleasant and talkative. Very motivated to get better. No confusion. Makes good eye contact when I am speaking with him. General Appearance: cooperative HEENT head/scalp atraumatic Mouth: dry mucous membranes Eyes PERRL and EOMs intact bilaterally Neck No nuchal rigidity Resp normal respiratory effort and clear to auscultation bilaterally Resp Narrative: No conversational dyspnea. Effort and Inspection: Negative for tachypneic or labored Cardio regular rate, regular rhythm, no rub and no gallops Cardio Narrative: He has a 3/6 holosystolic murmur heard at the apex and radiating into the left axilla. He has pectus excavatum GI normal to inspection, nondistended, normoactive bowel sounds, soft to palpation and non-tender GI Narrative: No hepatosplenomegaly, no abdominal bruits. No masses appreciated. Extremity no calf tenderness Extremity Narrative: He has varicosities in the bilateral lower extremities. General Extremity: edema bilateral lower extremity Details: mild Skin Skin Narrative: There are a few small scabs on his chest they are not sore and there is no DC. Scattered areas of ecchymosis on the forearms. General Skin Exam: no breakdown Rashes: no rashes Neuro CN's II-XII intact bilaterally Neuro Narrative: See NIHSS scoring. Speech: speech normal Psych cooperative and affect normal Psych Narrative: Making good eye contact with me. Appearance: appropriate Attitude: No agitated Results Lab / Micro Data 09/15/23 08:50 09/15/23 08:50 Assessment & Plan Assessment/Plan (1) Physical debility: (2) Acute stroke due to ischemia: (3) Subdural hematoma: (4) BPH associated with nocturia: (5) HTN (hypertension): QUALIFIERS: Hypertension type: primary hypertension Qualified Code(s): I10 - Essential (primary) hypertension (6) Macrocytic anemia: (7) Chronic renal failure, stage 3b: PLAN: Plan PLAN PT for gait stability OT for ADL's ST for evaluation Analgesics as needed Bowel protocol Fall precautions Assess for Anxiety/Depression GI prophylaxis-not necessary at this time patient has no epigastric pain, no heartburn, no nausea and no history of peptic ulcer disease. DVT prophylaxis with CORINA hose and ambulation. Doing very well with ambulation and he has no hx of DVT Follow up with cardiology, PCP and neurology following DC from [facility] AM lab including CMP, CBC, Mag and Phos ordered. Charges/Coding Visit Charges Inpatient E&M: 93305 Init Hosp L2
[2023-09-14 21:14] VITALS: BP 134/55; PULSE 62; RESP 15; TEMP 36.6; O2SAT 97; BMI 22.3; BMI 22.4
[2023-09-14 22:00] VITALS: BP 128/77; PULSE 67; RESP 18; TEMP 36.6; O2SAT 97
[2023-09-14] MEDS: levETIRAcetam 500 MG Tablet PO (22:59)
[2023-09-14] MEDS: Atorvastatin Calcium 40 MG Tablet PO (22:59)
[2023-09-14] MEDS: MELATONIN 3 MG TABLET PO (23:00)
[2023-09-15 05:00] VITALS: BP 119/64; BP 140/64; BP 155/67; PULSE 68
[2023-09-15] MEDS: Aspirin 81 MG TAB.CHEW PO (08:10)
[2023-09-15] MEDS: amLODIPine 10 MG Tablet PO (08:10)
[2023-09-15] MEDS: Senna/Docusate Sodium 1 Tablet 2 TABLET PO (08:10)
[2023-09-15] MEDS: Ferrous Sulfate 325 MG Tablet PO (08:11)
[2023-09-15 09:01] VITALS: PULSE 68; RESP 18; TEMP 37.4; O2SAT 95
[2023-09-15 09:30] VITALS: BP 131/53; PULSE 66
[2023-09-15] MEDS: levETIRAcetam 500 MG Tablet PO ×2 (09:33→21:11)
[2023-09-15 09:42] LABS: Hematocrit 34.3 % (40-54); Mean Corp Hgb Conc 32.1 g/dL (32-36); Mean Corpuscular Hgb 32.4 pg (27.0-32.0); Mean Corpuscular Volume 101.2 fL (80-94); Mean Platelet Vol. 10.5 fl (6.2-12.0); Platelet Count 189 K/mm3 (150-450); RBC Distribution Width CV 11.9 % (11.6-14.6); RBC Distribution Width SD 44.1 fl (35.1-43.9); Red Blood Count 3.39 M/mm3 (4.6-6.2); White Blood Count 5.8 K/mm3 (4.4-11.0)
[2023-09-15 09:49] LABS: Anion Gap 3 (5-15); BUN 34 mg/dL (7-18); BUN/Creat Ratio 22.7 RATIO (10-20); Calcium,Total 8.8 mg/dL (8.5-10.1); Chloride 110 mmol/L (98-107); EST Glomerular Filtration Rate 47 mL/min (>60); Est Glom Filt Rate - Afr Amer 57 mL/min (>60); Glucose 125 mg/dL (74-106); Magnesium 2.2 mg/dL (1.6-2.6); Phosphorus 2.8 mg/dL (2.5-4.9); Sodium Level 142 mmol/L (136-145)
[2023-09-15 14:39] VITALS: BP 132/61; PULSE 62
--- NOTE | 2023-09-15 15:06 | NURSING ---
Rani, daughter aware of team meeting on .
[2023-09-15] MEDS: MENTHOL 226.8 GM JAR 1 APPLIC TOPICAL (17:16)
[2023-09-15] MEDS: Tamsulosin HCl 0.4 MG Capsule PO (17:16)
[2023-09-15 17:42] VITALS: BP 118/68; PULSE 70
[2023-09-15] MEDS: MELATONIN 3 MG TABLET PO (21:10)
[2023-09-15] MEDS: Atorvastatin Calcium 40 MG Tablet PO (21:11)
[2023-09-15 21:24] VITALS: BP 138/63; PULSE 64; RESP 18; TEMP 36.3; O2SAT 97
[2023-09-16 06:00] VITALS: BP 139/66; PULSE 62; RESP 16; TEMP 36.9; O2SAT 97
[2023-09-16] MEDS: MENTHOL 226.8 GM JAR 1 APPLIC TOPICAL ×2 (06:07→11:27)
[2023-09-16 08:30] VITALS: BP 153/66; PULSE 62; RESP 18; TEMP 37.2; O2SAT 95
[2023-09-16] MEDS: Tamsulosin HCl 0.4 MG Capsule PO (08:37)
[2023-09-16] MEDS: amLODIPine 10 MG Tablet PO (08:37)
[2023-09-16] MEDS: Aspirin 81 MG TAB.CHEW PO (08:37)
[2023-09-16] MEDS: Ferrous Sulfate 325 MG Tablet PO (08:37)
[2023-09-16] MEDS: levETIRAcetam 500 MG Tablet PO ×2 (09:26→21:10)
[2023-09-16 14:00] VITALS: BP 133/63; PULSE 63
[2023-09-16 18:00] VITALS: BP 122/62; PULSE 74
[2023-09-16 20:53] VITALS: BMI 22.4
[2023-09-16] MEDS: MELATONIN 3 MG TABLET PO (21:10)
[2023-09-16] MEDS: Atorvastatin Calcium 40 MG Tablet PO (21:10)
[2023-09-16 21:30] VITALS: BP 148/69; PULSE 64; RESP 16; TEMP 37; O2SAT 97
[2023-09-16 22:00] VITALS: PULSE 74; RESP 16; O2SAT 97
[2023-09-17 05:19] VITALS: BP 138/66; PULSE 66; RESP 15; TEMP 36.7; O2SAT 96
[2023-09-17] MEDS: Senna/Docusate Sodium 1 Tablet 2 TABLET PO (08:05)
[2023-09-17] MEDS: Ferrous Sulfate 325 MG Tablet PO (08:05)
[2023-09-17] MEDS: Tamsulosin HCl 0.4 MG Capsule PO (08:05)
[2023-09-17] MEDS: amLODIPine 10 MG Tablet PO (08:07)
[2023-09-17] MEDS: Aspirin 81 MG TAB.CHEW PO (08:07)
--- NOTE | 2023-09-17 11:56 | PCM.RU.PYE ---
Admission Information Primary Diagnosis:: Post stroke debility Status Changes from Prescreening?: No changes Identified Actual Problem List:: Falls, Mobility Impaired, Self Care Deficit and Alteration-Leisure Activ. Potential Problem List:: DVT, Bleeding, Infection, UTI, Aspiration, Falls, Skin Integrity and Depression Risk of Complications DVT: CORINA Hose and Sequential Compression Device Bleeding: Monitor Lab Values, Nursing to Teach Precautions for anti-coagulation therapy., Wound, if applicable, to be assessed every shift. and Stroke patients assessed for lethargy or change in status. Infection: Clinical Staff to Monitor for S/S of infection: and S/S of infection include fever, redness, warmth, etc. Urinary Tract Infection: Monitor for frequency, burning, discomfort, or incontinence. and Nursing will obtain urine sample for urinalysis and C&S when ordered. Aspiration: Clinical staff will monitor for coughing, drooling, congestion., Speech will evaluate swallowing and dsyphasia. and Nursing will monitor patient swallowing during meals. Falls: Patient will be evaluated for Fall Precautions and Patient will be placed on Fall Precautions as indicated per protocol. Skin Breakdown: Nursing will assess skin daily using assessment tool. and Nursing will place on Skin Breakdown Precautions as indicated. Pain: Clinical staff will assess patient's pain level per protocol., Medications will be given, if needed, and the pain level reassessed. and Other methods: Massage, distraction, decrease stimulus, etc. used PRN. Plan of Care Patient requires physician specializing in physical medicine and rehab oversight to provide close medical supervision of rehab issues including: Pain Management, Sleep Problems, Bowel and Bladder, Medical and co-morbidity Management, DVT prophylaxis, Rehabilitation Leadership and Coordination of treatment team Patient needs Physical Therapy: For a minimum of 1 hour and At least 5 out of 7 days Patient needs Physical Therapy to improve:: Mobility, Strengthening, Transfers, Stretching, ROM, Endurance, Stairs, Gait and Balance Patient needs Occupational Therapy: For a minimum of 1 hour and At least 5 out of 7 days Patient needs Occupational Therapy to improve ADL's incl.: Eating, Grooming, Bathing, Dressing, Toileting, Toilet transfers, Community Reintegration, Higher functioning activities, Household tasks, Adaptive Equipment, Splinting and Other activities as determined Patient requires speech therapy: For a minimum of 1 hour and At least 5 out of 7 days Patient requires speech therapy for: Swallowing, Cognition, Language Skills and Compensatory Strategies Patient requires 24/7 Rehabilitation Nursing for: Pain Issues, Identifying and preventing risk factors, Monitoring and reporting current medical conditions, Assisting with ambulation, transfer, and all ADL's, Teaching patients about disease process and medications, Family teaching, Providing safe environment, Bowel and Bladder Issues, Skin integrity and Medication Management Patient needs Compounding And Finishing Supervisor/ Case Management for: Discharge Planning, Arranging Home Equipment or Services and Family Interventions Patient needs Dietary and Nutrition Services for: Adequate Nutrition, Nutritional Supplements and Nutritional Education Goals Goals Patient will remain: free from falls Patient will perform eating at: MOD I level of assist. Patient will perform bed mobility at: MOD I level of assist. Patient will complete transfers from bed to chair at: MOD I level of assist. Patient will ambulate: - (150 feet at mod I with least restrictive device) Patient will complete upper body dressing at: MOD I level of assist. Patient will complete lower body dressing at: MOD I level of assist. Patient will complete toilet transfer at: MOD I level of assist. Patient will complete toileting at: MOD I level of assist. Patient will perform bathing at: - (Supervision) Patient will perform Tub/Shower transfer at: - (Supervision) Patient will complete grooming at: MOD I level of assist. Patient will achieve: - (He will ascend/descend 3 steps at mod I with the least restrictive device.) Patient will have pain level of: of 3 or less Patient's skin will: remain intact Patient will receive: adequate nutrition. Discharge Planning Pt Prognosis for Sig. Practical Improv. w/in Reasonable Time: Good Estimated Length of stay (days): 21 Anticipated D/C Destination: Home with Outpt Therapy Was Preadmission Assessment Accurate?: Yes
[2023-09-17 12:00] VITALS: BP 131/59; PULSE 83
--- NOTE | 2023-09-17 15:30 | CASEMGMT ---
Rehab Unit Board Handler Met with patient at bedside to complete initial assessment. Sw introduced self to patient and explained role. Sw verified contact information. Patient confirmed code status as full code. Patient states that he has a HCPOA- states that it is his . No advanced directives scanned into patient chart. Sw encouraged patient to ask family to bring in documents. Patient expressed understanding. Educated to Medicare benefits. Patient's goal is to discharge to home where he resides with his . Sw will continue to follow for discharge planning. Nacho Tinsley, [employer]AD[employer] 6 TH[employer] 8 TEACHER, INBOUND CALL CENTER REPRESENTATIVE
[2023-09-17 17:00] VITALS: BMI 22.4
[2023-09-17 18:00] VITALS: BP 115/58; PULSE 62; RESP 16; TEMP 36.4; O2SAT 94
[2023-09-17] MEDS: Atorvastatin Calcium 40 MG Tablet PO (20:21)
[2023-09-17] MEDS: MELATONIN 3 MG TABLET PO (20:21)
[2023-09-17 21:00] VITALS: BP 121/65; PULSE 66; RESP 17; TEMP 36.7; O2SAT 95
[2023-09-18 00:21] VITALS: BMI 22.4
[2023-09-18 06:00] VITALS: BP 133/59; PULSE 59
[2023-09-18 06:48] VITALS: O2SAT 95
[2023-09-18] MEDS: Senna/Docusate Sodium 1 Tablet 2 TABLET PO (08:14)
[2023-09-18] MEDS: Aspirin 81 MG TAB.CHEW PO (08:14)
[2023-09-18] MEDS: Ferrous Sulfate 325 MG Tablet PO (08:14)
[2023-09-18] MEDS: Tamsulosin HCl 0.4 MG Capsule PO (08:14)
[2023-09-18] MEDS: amLODIPine 10 MG Tablet PO (08:15)
[2023-09-18 12:00] VITALS: BP 116/53; PULSE 65
[2023-09-18 16:10] VITALS: BMI 22.4
[2023-09-18 16:13] VITALS: BMI 22.4
[2023-09-18 17:31] VITALS: BP 152/66; PULSE 72
--- NOTE | 2023-09-18 19:06 | PCM.PROGNOTE ---
Subjective Subjective Afebrile VSS-blood pressures are for the most part well-controlled. Occasional systolic mildly increased above 130. Maintaining appropriate oxygen saturation on RA Oral intake - FOOD good FLUIDS good Discussed with nursing - no problems that need addressed. sleeping well at night. No restlessness and no agitation. Reviewed the THERAPY notes Medication list reviewed. Chung denies lightheadedness, vertigo, CP, SOB at rest, SOB with exertion, cough, nausea, vomiting, abd pain, diarrhea, constipation, dysuria, calf pain and ankle swelling. Objective Data Objective Data Vital Signs: Vital Signs Temp Pulse Resp BP Pulse Ox O2 Del Method 98.0 F 72 17 152/66 H 95 Room Air 09/17/23 21:00 09/18/23 17:31 09/17/23 21:00 09/18/23 17:31 09/18/23 06:48 09/18/23 06:48 Oxygen Delivery Method Room Air Weight: 130 lb 15.273 oz Body Mass Index (BMI) 22.4 Intake & Output: Intake and Output for Last 24 Hours 09/16/23 09/17/23 09/18/23 23:59 23:59 23:59 Intake Total 1062 / 1062 1260 / 1260 Output Total 1100 / 1100 1100 / 1100 Balance -38 / -38 160 / 160 Lab / Micro Data 09/15/23 08:50 09/15/23 08:50 Physical Exam Const alert, oriented x3 and no apparent distress General Appearance: cooperative Resp normal respiratory effort and clear to auscultation bilaterally Resp Narrative: No conversational dyspnea. Effort and Inspection: Negative for tachypneic or labored Cardio regular rate, regular rhythm, no rub and no gallops Cardio Narrative: He has a 3/6 holosystolic murmur heard at the apex and radiating into the left axilla. He has pectus excavatum GI normal to inspection, nondistended, normoactive bowel sounds, soft to palpation and non-tender GI Narrative: No hepatosplenomegaly, no abdominal bruits. No masses appreciated. Extremity no calf tenderness Skin General Skin Exam: no breakdown Rashes: no rashes Assessment & Plan Assessment/Plan (1) Physical debility: (2) Acute stroke due to ischemia: (3) Subdural hematoma: (4) BPH associated with nocturia: (5) HTN (hypertension): QUALIFIERS: Hypertension type: primary hypertension Qualified Code(s): I10 - Essential (primary) hypertension (6) Macrocytic anemia: PLAN: Etiology? MCV has gone up so I suspect he is having an adequate reticulocyte response to the anemia. Will order a Hemoccult stool. (7) Chronic renal failure, stage 3b: PLAN: Plan 1. Continue therapy 2. Check a Hemoccult stool 3. Recheck an H&H in a few days. 4. Continue an antiplatelet agent and statin. Charges/Coding Visit Charges Inpatient E&M: 85824 Subs Hosp L1
[2023-09-18] MEDS: Atorvastatin Calcium 40 MG Tablet PO (21:57)
[2023-09-18] MEDS: MELATONIN 3 MG TABLET PO (21:57)
[2023-09-18 22:00] VITALS: BP 156/60; PULSE 62; RESP 16; TEMP 36.6; O2SAT 98
[2023-09-19 01:34] VITALS: BMI 22.4
[2023-09-19 06:00] VITALS: BP 148/61; PULSE 59
[2023-09-19 07:00] VITALS: RESP 16; TEMP 36.8; O2SAT 95
[2023-09-19] MEDS: Ferrous Sulfate 325 MG Tablet PO (08:42)
[2023-09-19] MEDS: Tamsulosin HCl 0.4 MG Capsule PO (08:42)
[2023-09-19] MEDS: Aspirin 81 MG TAB.CHEW PO (08:42)
[2023-09-19] MEDS: amLODIPine 10 MG Tablet PO (08:42)
[2023-09-19 10:59] VITALS: BMI 22.4
[2023-09-19 12:00] VITALS: BP 135/56; PULSE 72
--- NOTE | 2023-09-19 14:40 | PCM.PROGNOTE ---
Subjective Subjective Afebrile VSS-diastolic blood pressures are always within goal. The systolic blood pressure is at times elevated. Over the past 24 hours has ranged from 116-156. Maintaining appropriate oxygen saturation on RA Oral intake - FOOD good FLUIDS adequate Discussed with nursing - no problems that need addressed Reviewed the THERAPY notes Medication list reviewed. He is still having nocturia nightly every hour. Postvoid residuals x 3 are unremarkable. Chung denies lightheadedness, cephalgia, chest pain, shortness of breath, palpitations, nausea/vomiting/abdominal pain/GERD, diarrhea/constipation, dysuria and calf tenderness. He tells me he is sleeping well at night and he has a good appetite. He is very motivated to get better and always cooperative with staff. Objective Data Objective Data Vital Signs: Vital Signs Temp Pulse Resp BP Pulse Ox O2 Del Method 98.3 F 72 16 135/56 H 95 Room Air 09/19/23 07:00 09/19/23 12:00 09/19/23 07:00 09/19/23 12:00 09/19/23 07:00 09/19/23 07:00 Oxygen Delivery Method Room Air Weight: 130 lb 15.273 oz Body Mass Index (BMI) 22.4 Intake & Output: Intake and Output for Last 24 Hours 09/17/23 09/18/23 09/19/23 23:59 23:59 23:59 Intake Total 1062 / 1062 1260 / 1260 880 / 880 Output Total 1100 / 1100 1100 / 1100 1700 / 1700 Balance -38 / -38 160 / 160 -820 / -820 Lab / Micro Data 09/15/23 08:50 09/15/23 08:50 Physical Exam Const alert, oriented x3 and no apparent distress Constitutional Narrative: Pleasant and talkative. Very motivated to get better. No confusion. Makes good eye contact when I am speaking with him. General Appearance: cooperative HEENT head/scalp atraumatic Eyes PERRL and EOMs intact bilaterally Neck No nuchal rigidity Resp clear to auscultation bilaterally Resp Narrative: No conversational dyspnea Effort and Inspection: Negative for tachypneic Cardio regular rate, regular rhythm and no gallops Cardio Narrative: No change in the holosystolic murmur present at the apex and radiating into the left axillary area. He also has a soft systolic murmur at the second left intercostal space. GI normal to inspection, nondistended, normoactive bowel sounds, soft to palpation and non-tender GI Narrative: No guarding with palpation Extremity no calf tenderness Extremity Narrative: He has some edema in the ankles even with the CORINA hose but, he tells me this is his normal. 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 Scattered areas of ecchymosis on the forearms. General Skin Exam: no breakdown Rashes: no rashes Neuro CN's II-XII intact bilaterally Neuro Narrative: See NIHSS scoring. Speech: speech normal Psych cooperative and affect normal Psych Narrative: Making good eye contact with me. Appearance: appropriate Attitude: No agitated Assessment & Plan Assessment/Plan (1) Physical debility: (2) Acute stroke due to ischemia: (3) Subdural hematoma: (4) BPH associated with nocturia: PLAN: Nocturia persists hourly at night despite the fact that his postvoid residuals are all less than 200. Etiology of nocturia? (5) HTN (hypertension): QUALIFIERS: Hypertension type: primary hypertension Qualified Code(s): I10 - Essential (primary) hypertension (6) Macrocytic anemia: PLAN: With mildly increased RDW. Has been anemic since 2017 and this may be anemia due to chronic renal failure. (7) Chronic renal failure, stage 3b: PLAN: Plan 1. Continue therapy 2. Check B12, folate and iron studies 3. Continue current antihypertensive regimen 4. Check a UA today to rule out infection as cause of urinary frequency. Charges/Coding Visit Charges Inpatient E&M: 52815 Subs Hosp L1
--- NOTE | 2023-09-19 15:49 | CHAPLAIN ---
Type of Pastoral Visit _x__ Initial Visit ___ Follow-up Visit ___ On-call Visit ___ General Patient Visit ___ Spiritual Assessment ___ Family Conference ___ Bereavement ___ Rapid Response ___ Code Blue ___ Other (describe below) Pastoral Care Referral From _x__ Patient ___ Family ___ Nurse ___ Physician ___ Highway Safety Engineer ___ Exercise Physiology Professor ___ Other (describe below) Sacrament/Intervention _x__ Active listening ___ Anointing ___ Amish ___ Bereavement ___ Communion _x__ Daphney exploration ___ _x__ Life review _x__ Prayer ___ Reconciliation ___ Sacrament of Sick _x__ Supportive presence ___ Wedding ___ Other (describe below) Pastoral Comments patient is very welcoming and very talkative; lots of life review, good stories, and life lessons shared; pt has good family and friend support; pt is member of a local rastafari; pt speaks of loss of his son 11 months ago but brings it into life experience of hope and overcoming difficulties; pt expresses great appreciation for time spent and given to listen in support of pt; pt is optimistic about his future and welcomes prayer and future visits
[2023-09-19 16:32] LABS: Bacteria 0 SEEN /hpf (None Seen); Mucous, Urine 0 SEEN /hpf (<or=2+); Red Blood Cells-Urine 0 SEEN /hpf (0-5); Squamous Epithelial Cells - UA 0 SEEN /hpf (0-5); White Blood Cells 0 SEEN /hpf (0-5)
[2023-09-19 16:44] LABS: Color, Urine Yellow (Yellow); Glucose, Dipstick Normal (Normal); Ketone-Dipstick Negative (Negative); Leukocyte Esterase-Dipstick Negative /ul (Negative); Nitrite-Dipstick Negative (Negative); Occult Blood-Urine Negative /ul (Negative); Protein-Dipstick Negative (Negative); Specific Gravity, Urine 1.015 (1.002-1.030); Urine Bilirubin Dipstick Negative (Negative); Urine Clarity Clear (Clear); Urine Urobilinogen Normal (Normal)
[2023-09-19 16:56] LABS: Vitamin B12 1082 pg/mL (211-911)
[2023-09-19 17:31] LABS: Ferritin 104 ng/mL (26-388); Iron 70 ug/dL (65-175); Iron Binding Capacity,Total 383 ug/dL (250-450); PERCENT IRON SATURATION 18.3 % (15.0-55.0)
[2023-09-19 17:37] VITALS: BP 123/59; PULSE 62
[2023-09-19 20:50] VITALS: BP 126/74; PULSE 59; RESP 16; TEMP 37.1; O2SAT 94
[2023-09-19 20:54] VITALS: BMI 22.4
[2023-09-19] MEDS: Senna/Docusate Sodium 1 Tablet 2 TABLET PO (21:03)
[2023-09-19] MEDS: Atorvastatin Calcium 40 MG Tablet PO (21:04)
[2023-09-19] MEDS: MELATONIN 3 MG TABLET PO (21:04)
[2023-09-19 22:00] VITALS: RESP 16; O2SAT 95
[2023-09-20 05:43] VITALS: BP 156/70; PULSE 70; RESP 16; TEMP 36.8; O2SAT 93
[2023-09-20] MEDS: Aspirin 81 MG TAB.CHEW PO (08:37)
[2023-09-20] MEDS: Ferrous Sulfate 325 MG Tablet PO (08:37)
[2023-09-20] MEDS: Tamsulosin HCl 0.4 MG Capsule PO (08:38)
[2023-09-20] MEDS: amLODIPine 10 MG Tablet PO (08:38)
[2023-09-20] MEDS: Senna/Docusate Sodium 1 Tablet 2 TABLET PO ×2 (08:38→21:52)
[2023-09-20 10:05] VITALS: BMI 22.4
[2023-09-20 11:30] VITALS: BP 132/58; PULSE 64
--- NOTE | 2023-09-20 14:07 | CASEMGMT ---
Social Work IDT met with patient, and dtr for Team meeting. Discussed patient's progress in PT/OT/ST/SN. Educated to [facility] insurance with NRD 09/20 and continued stay is not guaranteed with each review. Pt's goal is to return home with . Will ReTeam weekly. SW will continue to follow for DC planning. Melanie Bobby, QUE FLEMINGW
--- NOTE | 2023-09-20 16:24 | CHAPLAIN ---
Type of Pastoral Visit ___ Initial Visit ___ Follow-up Visit ___ On-call Visit ___ General Patient Visit ___ Spiritual Assessment ___ Family Conference ___ Bereavement ___ Rapid Response ___ Code Blue ___ Other (describe below) Pastoral Care Referral From ___ Patient ___ Family ___ Nurse ___ Physician ___ Final Assembler ___ Abstract Searcher ___ Other (describe below) Sacrament/Intervention ___ Active listening ___ Anointing ___ Temple ___ Bereavement ___ Communion ___ Daphney exploration ___ ___ Life review ___ Prayer ___ Reconciliation ___ Sacrament of Sick ___ Supportive presence ___ Wedding ___ Other (describe below) Pastoral Comments the patient called out into hallway when he saw this environmental assistant and invited the same in to meet family members; pt speaks of his day and what his activities have been; gives more life review and expresess thanks for the environmental assistant being available and supportive
--- NOTE | 2023-09-20 17:45 | PN_ITS ---
Subjective Subjective Chung was seen on team rounds today. His and daughter were present in the room. Afebrile VSS-blood pressures over the past 24 hours have ranged from 123/59 to 156/70. Has not had to have any as needed hydralazine. Maintaining appropriate oxygen saturation on RA Oral intake - FOOD good FLUIDS good Discussed with nursing - no problems that need addressed. Sleeping well at night and eating well. He is pleasant and cooperative. Reviewed the THERAPY notes Medication list reviewed. Antihypertensives include amlodipine 10 mg daily and as needed hydralazine. The iron and iron saturation are both within normal limits. B12 is normal and so is the folate level. TSH is normal. Chung denies cephalgia, lightheadedness, vertigo, chest pain, shortness of breath, cough, sore throat, abdominal pain, nausea/vomiting, diarrhea and calf pain. He also denies dysuria. His only complaint is that he is up approximately every hour at night urinating and he also urinates frequently during the day. Objective Data Objective Data Vital Signs: Vital Signs Temp Pulse Resp BP Pulse Ox O2 Del Method 98.2 F 64 16 132/58 H 93 Room Air 09/20/23 05:43 09/20/23 11:30 09/20/23 05:43 09/20/23 11:30 09/20/23 05:43 09/20/23 05:43 Oxygen Delivery Method Room Air Weight: 130 lb 15.273 oz Body Mass Index (BMI) 22.4 Intake & Output: Intake and Output for Last 24 Hours 09/18/23 09/19/23 09/20/23 23:59 23:59 23:59 Intake Total 1260 / 1260 1610 / 1610 920 / 920 Output Total 1100 / 1100 2370 / 2370 1295 / 1295 Balance 160 / 160 -760 / -760 -375 / -375 Lab / Micro Data 09/21/23 05:48 09/21/23 05:48 Micro: Microbiology 09/20/23 09:10 Stool Stool Occult Blood (SOPHIA) - Final Physical Exam Const alert and no apparent distress Resp clear to auscultation bilaterally Resp Narrative: No conversational dyspnea Effort and Inspection: Negative for tachypneic Cardio regular rate, regular rhythm and no gallops Cardio Narrative: No change in the holosystolic murmur present at the apex and radiating into the left axillary area. He also has a soft systolic murmur at the second left intercostal space. GI normal to inspection, nondistended, normoactive bowel sounds, soft to palpation and non-tender GI Narrative: No guarding with palpation Extremity no calf tenderness Extremity Narrative: He has some edema in the ankles even with the CORINA hose but, he tells me this is his normal. 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 Appearance: appropriate Assessment & Plan Assessment/Plan (1) Physical debility: (2) Acute stroke due to ischemia: (3) Subdural hematoma: (4) BPH associated with nocturia: (5) HTN (hypertension): QUALIFIERS: Hypertension type: primary hypertension Qualified Code(s): I10 - Essential (primary) hypertension (6) Macrocytic anemia: (7) Chronic renal failure, stage 3b: (8) Urinary frequency: PLAN: Treating for BPH has not improved this. PVR's are all less than 200. PLAN: Plan 1. Continue therapy. 2. BMP, H&H and TSH in the AM. 3. the edema in the ankles is increased from what it was at admission to rehab........this may be due to Amlodipine. If the potassium and the creat are stable on the lab in the AM will decrease amlodipine to 5 mg and add an OSKAR or ARB to the drug regimen. 4. Consider adding an antispasmodic at at bedtime to decrease nocturia. Charges/Coding Visit Charges Inpatient E&M: 54338 [facility] Hosp L1
[2023-09-20 17:52] VITALS: BP 161/72; PULSE 68; RESP 18; TEMP 36.5; O2SAT 96
[2023-09-20] MEDS: Atorvastatin Calcium 40 MG Tablet PO (21:51)
[2023-09-20] MEDS: MELATONIN 3 MG TABLET PO (21:51)
[2023-09-20 22:00] VITALS: BP 149/64; PULSE 58; RESP 16; TEMP 36.4; O2SAT 94
[2023-09-20 22:22] VITALS: BMI 22.4
[2023-09-21 05:33] VITALS: BP 140/61; PULSE 58; RESP 16; TEMP 37.2; O2SAT 95
[2023-09-21 06:01] LABS: Hematocrit 35.1 % (40-54); Hemoglobin 11.1 g/dL (13.0-16.5)
[2023-09-21 06:42] LABS: Anion Gap 7 (5-15); BUN 33 mg/dL (7-18); BUN/Creat Ratio 22.4 RATIO (10-20); Calcium,Total 9.2 mg/dL (8.5-10.1); Chloride 106 mmol/L (98-107); Creatinine, Serum 1.47 mg/dL (0.70-1.30); EST Glomerular Filtration Rate 49 mL/min (>60); Est Glom Filt Rate - Afr Amer 59 mL/min (>60); Estimated Creatinine Clearance 31.32 ml/min; Glucose 97 mg/dL (74-106); Potassium 4.3 mmol/L (3.5-5.1); Sodium Level 140 mmol/L (136-145); Thyroid Stim Hormone (TSH) 1.91 uIU/mL (0.358-3.74)
[2023-09-21 06:56] VITALS: BMI 22.1
[2023-09-21] MEDS: Tamsulosin HCl 0.4 MG Capsule PO (08:09)
[2023-09-21] MEDS: Ferrous Sulfate 325 MG Tablet PO (08:09)
[2023-09-21] MEDS: Aspirin 81 MG TAB.CHEW PO (08:09)
[2023-09-21] MEDS: amLODIPine 10 MG Tablet PO (08:09)
[2023-09-21 08:34] VITALS: BP 140/61; PULSE 58; RESP 16; TEMP 37.2; O2SAT 95
[2023-09-21 12:25] VITALS: BMI 22.1
[2023-09-21 12:58] VITALS: BP 136/56; PULSE 67
[2023-09-21 18:00] VITALS: BP 146/58; PULSE 84
[2023-09-21] MEDS: MELATONIN 3 MG TABLET PO (20:22)
[2023-09-21] MEDS: Oxybutynin 5 MG Tablet 2.5 MG PO (20:23)
[2023-09-21] MEDS: Atorvastatin Calcium 40 MG Tablet PO (20:23)
[2023-09-21 22:00] VITALS: BP 135/75; PULSE 56; RESP 18; TEMP 37.4; O2SAT 94
[2023-09-22 01:09] VITALS: BMI 22.1
[2023-09-22 06:00] VITALS: BP 143/68; PULSE 59; RESP 18; TEMP 36.5; O2SAT 97
[2023-09-22] MEDS: Aspirin 81 MG TAB.CHEW PO (08:50)
[2023-09-22] MEDS: Tamsulosin HCl 0.4 MG Capsule PO (08:50)
[2023-09-22] MEDS: Ferrous Sulfate 325 MG Tablet PO (08:51)
[2023-09-22] MEDS: amLODIPine 10 MG Tablet PO (08:51)
[2023-09-22 12:00] VITALS: BP 127/57; PULSE 58
[2023-09-22 15:09] VITALS: BMI 22.1
[2023-09-22 17:39] VITALS: BP 130/52; PULSE 60; RESP 18; TEMP 36.8; O2SAT 95
[2023-09-22] MEDS: Atorvastatin Calcium 40 MG Tablet PO (20:36)
[2023-09-22] MEDS: Oxybutynin 5 MG Tablet 2.5 MG PO (20:36)
[2023-09-22 22:00] VITALS: BP 136/62; PULSE 49; RESP 18; TEMP 36.8; O2SAT 96
[2023-09-23 00:46] VITALS: BMI 22.1
[2023-09-23] MEDS: MENTHOL 226.8 GM JAR 1 APPLIC TOPICAL (03:15)
[2023-09-23 06:00] VITALS: BP 151/62; PULSE 51; RESP 18; TEMP 36.7; O2SAT 95
[2023-09-23] MEDS: Aspirin 81 MG TAB.CHEW PO (08:26)
[2023-09-23] MEDS: Ferrous Sulfate 325 MG Tablet PO (08:26)
[2023-09-23] MEDS: Tamsulosin HCl 0.4 MG Capsule PO (08:26)
[2023-09-23] MEDS: amLODIPine 10 MG Tablet PO (08:27)
[2023-09-23 12:00] VITALS: BP 113/50; PULSE 54
[2023-09-23 14:42] VITALS: BMI 22.1
[2023-09-23 18:00] VITALS: BP 134/60; PULSE 58
[2023-09-23 20:19] VITALS: BMI 22.1
[2023-09-23] MEDS: Oxybutynin 5 MG Tablet 2.5 MG PO (20:20)
[2023-09-23] MEDS: Atorvastatin Calcium 40 MG Tablet PO (20:22)
[2023-09-23] MEDS: MELATONIN 3 MG TABLET PO (20:22)
[2023-09-23 21:28] VITALS: BP 122/62; PULSE 58; RESP 15; TEMP 36.8; O2SAT 94
[2023-09-24 06:16] VITALS: BP 151/69; PULSE 67; RESP 15; TEMP 36.7; O2SAT 96
[2023-09-24] MEDS: Tamsulosin HCl 0.4 MG Capsule PO (07:52)
[2023-09-24] MEDS: Aspirin 81 MG TAB.CHEW PO (07:52)
[2023-09-24] MEDS: amLODIPine 10 MG Tablet PO (07:52)
[2023-09-24] MEDS: Ferrous Sulfate 325 MG Tablet PO (07:53)
--- NOTE | 2023-09-24 11:10 | PCM.PROGNOTE ---
Subjective Subjective Afebrile VSS-heart rate over the past 24 hours has ranged from 51-67. Blood pressure for the past 24 hours has ranged from 113/52 151/62. Blood pressure tends to be higher at 6 AM in the morning. Blood pressure lying down was 128/51 with a heart rate of 57 and standing the blood pressure was 119/57 with a pulse rate of 69.This is a negative test. Maintaining appropriate oxygen saturation on RA Oral intake - FOOD good FLUIDS good Discussed with nursing - no problems that need addressed Reviewed the THERAPY notes Medication list reviewed. Antihypertensives include amlodipine 10 mg p.o. every morning. with the addition of Oxybutynin to the drug regimen he is now only getting up 1-2 times a night to urinate and he is sleeping much better. Chung denies headache, lightheadedness, vertigo, chest pain, shortness of breath, cough, nausea/vomiting/abdominal pain, dysuria and calf pain. Objective Data Objective Data Vital Signs: Vital Signs Temp Pulse Resp BP Pulse Ox O2 Del Method 98.1 F 67 15 151/69 H 96 Room Air 09/24/23 06:16 09/24/23 06:16 09/24/23 06:16 09/24/23 06:16 09/24/23 06:16 09/24/23 06:16 Oxygen Delivery Method Room Air Weight: 130 lb 1.164 oz Body Mass Index (BMI) 22.1 Intake & Output: Intake and Output for Last 24 Hours 09/22/23 09/23/23 09/24/23 23:59 23:59 23:59 Intake Total 650 / 800 1500 / 1500 300 / 300 Output Total 800 / 1225 1385 / 1385 Balance -150 / -425 115 / 115 300 / 300 Lab / Micro Data 09/21/23 05:48 09/21/23 05:48 Micro: Microbiology 09/20/23 09:10 Stool Stool Occult Blood (SOPHIA) - Final Physical Exam Const alert, oriented x3 and no apparent distress General Appearance: cooperative Resp clear to auscultation bilaterally Resp Narrative: No conversational dyspnea Effort and Inspection: Negative for tachypneic Cardio regular rate, regular rhythm and no gallops GI normal to inspection, nondistended, normoactive bowel sounds, soft to palpation and non-tender GI Narrative: No guarding with palpation Extremity no calf tenderness Extremity Narrative: He has some edema in the ankles even with the CORINA hose but, he tells me this is his normal. 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 The left ankle is more swollen than the R today.....this is opposite of how it usually is. He is not concerned about the edema (which is limited to just the ankle) because with the compression stockings it is less than is usually is at home. General Extremity: edema Skin General Skin Exam: no breakdown Rashes: no rashes Psych cooperative and affect normal Psych Narrative: Making good eye contact with me. Appearance: appropriate Attitude: No agitated Activity / Motor Behavior: Negative for restless Mood & Affect: Negative for depressed Assessment & Plan Assessment/Plan (1) Physical debility: (2) Acute stroke due to ischemia: (3) Subdural hematoma: (4) BPH associated with nocturia: (5) HTN (hypertension): QUALIFIERS: Hypertension type: primary hypertension Qualified Code(s): I10 - Essential (primary) hypertension (6) Macrocytic anemia: (7) Chronic renal failure, stage 3b: (8) Urinary frequency: PLAN: Treating for BPH has not improved this. PVR's are all less than 200. He was strted on Oxybutynin at night and the nocturia is significantlly less. 1-2 times a night (9) Anemia of chronic renal failure, stage 3 (moderate): PLAN: B12, folate, iron studies and TSH are all normal. Would check a SPE and immunoelectrophoresis as an OP to r/o MM. Hemoccult stool is negative and the calcium is within normal limits. PLAN: Plan 1. Continue therapy 2. I suspect the increase edema in his ankles is related to amlodipine. Will decrease the dose to 5 mg daily in the a.m. and add Cozaar 25 mg p.o. nightly. 3. Recheck 3 postvoid residuals since he is now on oxybutynin 4. BMP, serum albumin and H&H in the a.m. Charges/Coding Visit Charges Inpatient E&M: 78745 Subs Hosp L1
[2023-09-24 11:13] VITALS: BP 119/57; BP 123/54; BP 128/51; PULSE 57; PULSE 63; PULSE 69
[2023-09-24 12:00] VITALS: BP 123/54; PULSE 63
[2023-09-24 15:24] VITALS: BMI 22.1
[2023-09-24 17:28] VITALS: BP 121/57; PULSE 68; RESP 16; TEMP 36.6; O2SAT 95
[2023-09-24] MEDS: Oxybutynin 5 MG Tablet 2.5 MG PO (21:11)
[2023-09-24] MEDS: Losartan Potassium 25 MG Tablet PO (21:12)
[2023-09-24] MEDS: Atorvastatin Calcium 40 MG Tablet PO (21:12)
[2023-09-24] MEDS: MELATONIN 3 MG TABLET PO (21:13)
[2023-09-24 22:00] VITALS: BP 138/68; PULSE 68; RESP 18; TEMP 36.2; O2SAT 97
[2023-09-24 22:55] VITALS: BMI 22.1
[2023-09-25 05:49] VITALS: BP 150/73; PULSE 61
[2023-09-25 06:05] LABS: Hematocrit 31.7 % (40-54); Hemoglobin 10.3 g/dL (13.0-16.5)
[2023-09-25 06:24] LABS: Albumin, Serum 3.2 g/dL (3.2-5.0); Anion Gap 4 (5-15); BUN 32 mg/dL (7-18); BUN/Creat Ratio 21.3 RATIO (10-20); Calcium,Total 8.7 mg/dL (8.5-10.1); Chloride 107 mmol/L (98-107); EST Glomerular Filtration Rate 47 mL/min (>60); Est Glom Filt Rate - Afr Amer 57 mL/min (>60); Estimated Creatinine Clearance 30.59 ml/min; Glucose 99 mg/dL (74-106); Potassium 4.1 mmol/L (3.5-5.1); Sodium Level 142 mmol/L (136-145)
[2023-09-25] MEDS: Aspirin 81 MG TAB.CHEW PO (07:23)
[2023-09-25] MEDS: Tamsulosin HCl 0.4 MG Capsule PO (07:23)
[2023-09-25] MEDS: Ferrous Sulfate 325 MG Tablet PO (07:24)
[2023-09-25] MEDS: amLODIPine 5 MG Tablet PO (07:24)
--- NOTE | 2023-09-25 11:01 | PCM.PROGNOTE ---
Subjective Subjective Afebrile VSS Maintaining appropriate oxygen saturation on RA Oral intake - FOOD good FLUIDS good Discussed with nursing - no problems that need addressed. Nursing reports she was up every 2 hours last night urinating. Postvoid residuals x 2 have been less than 70. this is not reflected in the flow sheets. Reviewed the THERAPY notes Medication list reviewed. Denies lightheadedness. Keeps asking when he will go home. Will address this on during rounds. Chung denies chest pain, shortness of breath, cough, sore throat, nausea/vomiting/abdominal pain, dysuria and calf tenderness. He is now walking with a straight cane at [facility]. He can ascend/descend 5 steps with 2 HR's without LOB in a reciprocal stepping. All lab drawn this AM was personally reviewed. Hemoglobin is 10.3, down from 11.1 on 09/21/2023. Sodium is 142 and the potassium is stable at 4.1. The BUN is 32 which is stable and the creatinine is 1.5 which is also stable and within his baseline. Estimated creatinine clearance is 30.59. GFR is 47. Calcium is normal. Objective Data Objective Data Vital Signs: Vital Signs Temp Pulse Resp BP Pulse Ox O2 Del Method 97.2 F L 61 18 150/73 H 97 Room Air 09/24/23 22:00 09/25/23 05:49 09/24/23 22:00 09/25/23 05:49 09/24/23 22:00 09/24/23 22:00 Oxygen Delivery Method Room Air Weight: 130 lb 1.164 oz Body Mass Index (BMI) 22.1 Intake & Output: Intake and Output for Last 24 Hours 09/23/23 09/24/23 09/25/23 23:59 23:59 23:59 Intake Total 1500 / 1500 1380 / 1380 360 / 360 Output Total 1385 / 1385 200 / 400 1150 / 1150 Balance 115 / 115 1180 / 980 -790 / -790 Lab / Micro Data 09/25/23 05:37 09/25/23 05:37 Labs: Laboratory Results - last 24 hr 09/25/23 05:37: Hgb 10.3 L, Hct 31.7 L, Sodium 142, Potassium 4.1, Chloride 107, Carbon Dioxide 31.0, Anion Gap 4 L, BUN 32 H, Creatinine 1.50 H, Estim Creat Clear Calc 30.59, Est GFR (MDRD) Af Amer 57 L, Est GFR (MDRD) Non-Af 47 L, BUN/Creatinine Ratio 21.3 H, Glucose 99, Calcium 8.7, Albumin 3.2 Micro: Microbiology 09/20/23 09:10 Stool Stool Occult Blood (SOPHIA) - Final Physical Exam Const alert and no apparent distress General Appearance: cooperative HEENT moist oral mucous membranes HEENT Narrative: No thrush Resp normal respiratory effort and clear to auscultation bilaterally Effort and Inspection: Negative for tachypneic Cardio regular rate, regular rhythm and no gallops Cardio Narrative: No change in the MM - MR. No ectopy. Monitor was placed on by nursing. Sent to his home by [facility]. GI normal to inspection, nondistended, normoactive bowel sounds, soft to palpation and non-tender Extremity no calf tenderness General Extremity: edema Skin General Skin Exam: no breakdown Rashes: no rashes Psych affect normal Assessment & Plan Assessment/Plan (1) Physical debility: (2) Acute stroke due to ischemia: (3) Subdural hematoma: (4) HTN (hypertension): QUALIFIERS: Hypertension type: primary hypertension Qualified Code(s): I10 - Essential (primary) hypertension (5) Chronic renal failure, stage 3b: PLAN: Plan 1. Continue therapy 2. Continue amlodipine at the decreased dose of 5 mg daily and Cozaar 25 mg p.o. nightly. Recheck a BMP on and if the potassium and creatinine are stable will go up on the Cozaar and down on the amlodipine. I suspect amlodipine is contributing considerably to ankle edema. 3. Recheck H&H on . Charges/Coding Visit Charges Inpatient E&M: 16455 Subs Hosp L1
[2023-09-25 14:33] VITALS: BMI 22.1
[2023-09-25 20:00] VITALS: BP 118/50; PULSE 64; RESP 17; TEMP 36.2; O2SAT 94
[2023-09-25] MEDS: Oxybutynin 5 MG Tablet 2.5 MG PO (20:06)
[2023-09-25] MEDS: Losartan Potassium 25 MG Tablet PO (20:07)
[2023-09-25] MEDS: MELATONIN 3 MG TABLET PO (20:07)
[2023-09-25] MEDS: Atorvastatin Calcium 40 MG Tablet PO (20:08)
[2023-09-26 00:45] VITALS: BMI 22.1
[2023-09-26 07:16] VITALS: BP 146/56; PULSE 64; RESP 17; TEMP 36.8; O2SAT 95
[2023-09-26] MEDS: amLODIPine 5 MG Tablet PO (07:38)
[2023-09-26] MEDS: Aspirin 81 MG TAB.CHEW PO (07:38)
[2023-09-26] MEDS: Ferrous Sulfate 325 MG Tablet PO (07:39)
[2023-09-26] MEDS: Tamsulosin HCl 0.4 MG Capsule PO (07:39)
[2023-09-26 12:55] VITALS: BMI 22.1
[2023-09-26 19:13] VITALS: BP 137/52; PULSE 58; RESP 17; TEMP 36.6; O2SAT 97
[2023-09-26] MEDS: Senna/Docusate Sodium 1 Tablet 2 TABLET PO (20:26)
[2023-09-26] MEDS: Atorvastatin Calcium 40 MG Tablet PO (20:26)
[2023-09-26] MEDS: MELATONIN 3 MG TABLET PO (20:27)
[2023-09-26] MEDS: Losartan Potassium 25 MG Tablet PO (20:27)
[2023-09-26] MEDS: Oxybutynin 5 MG Tablet 2.5 MG PO (20:27)
[2023-09-26 20:35] VITALS: PULSE 58; RESP 15; O2SAT 97; BMI 22.1
[2023-09-27 05:56] LABS: Hematocrit 35.2 % (40-54)
[2023-09-27 06:19] LABS: Anion Gap 5 (5-15); BUN 32 mg/dL (7-18); BUN/Creat Ratio 20.5 RATIO (10-20); Calcium,Total 8.7 mg/dL (8.5-10.1); Chloride 105 mmol/L (98-107); Creatinine, Serum 1.56 mg/dL (0.70-1.30); EST Glomerular Filtration Rate 45 mL/min (>60); Est Glom Filt Rate - Afr Amer 55 mL/min (>60); Estimated Creatinine Clearance 29.42 ml/min; Glucose 101 mg/dL (74-106); Potassium 4.4 mmol/L (3.5-5.1); Sodium Level 139 mmol/L (136-145)
[2023-09-27 07:08] VITALS: BP 155/63; PULSE 71; RESP 15; TEMP 36.5; O2SAT 95
[2023-09-27] MEDS: Aspirin 81 MG TAB.CHEW PO (08:04)
[2023-09-27] MEDS: Ferrous Sulfate 325 MG Tablet PO (08:05)
[2023-09-27] MEDS: Tamsulosin HCl 0.4 MG Capsule PO (08:05)
[2023-09-27] MEDS: amLODIPine 5 MG Tablet PO (08:05)
[2023-09-27] MEDS: Senna/Docusate Sodium 1 Tablet 2 TABLET PO (08:06)
--- NOTE | 2023-09-27 13:21 | CASEMGMT ---
Social Work IDT met with patient and for Team meeting. Discussed patient's progress in PT/OT/ST/SN. Educated to [facility] insurance with [employer] 09/27 and continued stay is not guaranteed with each review. Pt and IDT in agreement pt is ready to DC. Offered DC 09/27. Pt/ agreed. IDT recommending OP PT/ST and no DME needs at DC. Pt agreeable to [facility] for OP therapy as ST is needed. 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 SW provided with transportation resources for OP therapy, if needed, as does work and information on transportation driver's program. to transport at [place]. SW faxed referral to [facility] and [facility] Plan: DC home with 09/27, [facility] PT/ST, [facility]
--- NOTE | 2023-09-27 16:39 | PCM.DC ---
Discharge Instructions Diet Discharge Diet: Low fat / Low cholesterol Activity Discharge Activity: May Not Drive and Use Walker (Use a walker or a cane when ambulating until the outpatient therapist tells you it is OK to walk without and assistive device. ) Weight Bearing Status: Full weight bearing Keep extremity elevated above heart level: Legs Dressing / Incision Call your doctor if you observe: Fever of 101 or Higher, Inability to urinate, Shortness of breath, Dizziness ( lightheadedness, especially when standing.), Fainting spells, Chest pain, Increased palpitations (irregular heartbeat), Calf discomfort, Uncontrolled pain and - (STROKE symptoms: facial droop, slurred speech, inability to get words out, weakness on 1 side of the body and not the other, numbness on 1 side of the body and not the other, inability to maintain your balance sitting or standing, vertigo. ) Follow Up Care When: You will need to follow up with Dr. Hakeem Canales within 7-10 days of DC from rehab. You have an appt to follow up with Dr. Alonzo Rivera from neurology on 10/23/23 at 11:15 AM. Test Results: Test results from this visit will be discussed in further detail at your follow-up appointment, if applicable. Pending Tests Upon Discharge: none Discharge Plan Admission Admit Date/Time: 09/14/23 18:35 Primary Reason for Your Visit: Post stroke debility Attending Provider: Lorraine Amador Primary Care Provider: Hakeem Canales Instructions Patient Instructions: Discharge Instructions for Stroke Additional Instructions / Restrictions: 1. Please wear the compression stockings from the time you get out of bed in the morning until you go to bed at night. This will help control the swelling in your ankles. The swelling has been a little worse lately and I suspect this may be due to one of the BP meds you are on called Amlodipine(also called Norvasc) One of the biggest side effects of this drug is swelling in the legs. We have cut the dose in half and ultimately you may need to be taken off this medication and started on a different medication. You should NOT be placed on a diuretic (water pill) because when you stand up your BP drops and then you get lightheaded. you have to make sure you are drinking at least 1 and 1/2 liters of non-caffeinated fluids a day to keep the BP from dropping when you stand up. The swelling in your legs is due to the varicose veins and the best way to control this swelling is with compression. 2. It is very important to take your medications exactly as prescribed. Using a pill box is the best way to organize the medications. You can also set an alarm on your phone to help you to remember when to take your medicines. You have some trouble with memory and I think someone from your family should help you set up your pill box for the week and then check to see if you have taken the medication. 3. Because of the stroke and the trouble with memory I do not think you should be driving until you are able to be evaluated by a driving school in [place] run by the [facility]. It is a very thorough program and they will evaluate vision, reaction time, reflexes and determine if you are safe to drive. the SW gave your dtr the information about the driving program. 4. You are anemic. This means your red blood cell count is lower than normal. We checked your stool for blood and it was negative. You have been anemic for a few years now. This may be due to the chronic kidney disease you have but, your doctor may want to do additional testing to see if it is possibly due to something else. We checked your thyroid and it is normal. The blood count has been stable since you arrived on rehab. We also checked B12, iron and folate and these values are also normal. the most likely reason for the anemia is the chronic kidney disease. 5. the reason you get up so much at night is NOT because you are retaining. I suspect you have bladder spasms. We started you on a medication called Oxybutynin at night. the number of times you get up at night has decreased but, you still are getting up 2 times or more. Your doctor may want to increase the dose. Side effects of this medication include dry mouth, constipation, confusion. If you have any of these problems tell your doctor right away. 6. It has been a pleasure having you on rehab and you have worked hard to get better. If you ever need our help again we will be here for you. If you or your family have any questions after leaving rehab please do not hesitate to call. OFFICE: [phone] CELL: [phone] NURSES STATION ON REHAB: [phone] Discharge Orders/Prescriptions Prescriptions: New losartan 50 mg Tablet 50 mg PO QHS Qty: 30 0RF amlodipine 5 mg Tablet 5 mg PO DAILY Qty: 30 0RF oxybutynin chloride 5 mg Tablet 2.5 mg PO 1999 Qty: 15 0RF Rx Instructions: 1/2 tab at bedtime to cut down on urination at night. Continued glucosamine sulfate [[place]] 750 mg tablet 750 mg PO BID Rx Instructions: administer with meals acetaminophen 500 mg tablet 1,000 mg PO Q8H PRN (Reason: PAIN 1-10 AND FEVER) melatonin 3 mg capsule 3 mg PO QHS atorvastatin 40 mg tablet 40 mg PO QHS Qty: 30 0RF tamsulosin [Flomax] 0.4 mg capsule 0.4 mg PO DAILY Qty: 30 0RF aspirin 81 MG tablet,chewable 81 mg PO DAILY@0800 Qty: 30 0RF Rx Instructions: Take this medication with food Discontinued amlodipine 10 mg tablet 10 mg PO DAILY levetiracetam [Keppra] 500 mg tablet 500 mg PO Q12H ferrous sulfate [Feosol] 325 mg (65 mg iron) tablet 325 mg PO DAILY hydralazine 10 mg tablet 10 mg PO Q4H PRN (Reason: hypertension) Patient Comments: For systolic >160, diastolic >90 Rx Instructions: until target blood pressure attained alum-mag hydroxide-simeth [Advanced Antacid-Antigas] 200-200-20 mg/5 mL suspension 5 ml PO Q6H PRN (Reason: indigestion) polyethylene glycol 3350 [ClearLax] 17 gram/dose powder 17 g PO DAILY Referrals / Follow Up: [facility] Colind[facility]-Neurology [Other] - 10/23/23 11:15 am Hakeem Canales MD [Primary Care Provider] - Disposition Disposition (needs filled in before D/C Order can be placed): Home, Self Care
--- NOTE | 2023-09-27 17:31 | EX.DISCHREH ---
Providers Date of Admission: 09/14/23 Date of Discharge: 09/28/23 Primary Care Physician: Dr. Hakeem Canales MD Reason For Visit: STROKE Diagnosis Discharge Diagnosis (1) Physical debility: Status: Acute Code(s): R53.81 - Other malaise (2) Acute stroke due to ischemia: Status: Acute Code(s): I63.9 - Cerebral infarction, unspecified Plan: Ischemic in the R basal ganglia. will need OP PT/OT at discharge from rehab. (3) Subdural hematoma: Status: Acute Code(s): S06.5XAA - Traumatic subdural hemorrhage with loss of consciousness status unknown, initial encounter Plan: Traumatic due to hitting his head on the day he had the ischemic stroke. (4) HTN (hypertension): Status: Chronic Code(s): I10 - Essential (primary) hypertension Qualifiers: Hypertension type: primary hypertension Qualified Code(s): I10 - Essential (primary) hypertension (5) Chronic renal failure, stage 3b: Status: Chronic Code(s): N18.32 - Chronic kidney disease, stage 3b Plan: fluctuates between 3a and 3b. (6) Anemia of chronic renal failure, stage 3 (moderate): Status: Chronic Code(s): N18.30 - Chronic kidney disease, stage 3 unspecified; D63.1 - Anemia in chronic kidney disease Qualifiers: Chronic kidney disease stage 3 subtype: stage 3a (GFR 45-59) Qualified Code(s): N18.31 - Chronic kidney disease, stage 3a; D63.1 - Anemia in chronic kidney disease Plan: B12, i folate, ferritin, percent transferrin saturation and serum iron are all normal. TSH is normal. Hemoccult stool was negative. (7) Urinary frequency: Status: Acute Code(s): R35.0 - Frequency of micturition Plan: He does not retain. All post void residuals were less than 200. I suspect he has bladder spasticity. He was started on oxybutynin at a very low dose of 2.5 mg at bedtime and he is going 3-4 times at night which is down from [facility] first arrived on rehab. May want to consider increasing the dose to 5 mg but, side effects may limit this. (8) BPH associated with nocturia: Status: Acute Code(s): N40.1 - Benign prostatic hyperplasia with lower urinary tract symptoms; R35.1 - Nocturia Plan: Continue Flomax (9) Cognitive dysfunction: Status: Acute Code(s): F09 - Unspecified mental disorder due to known physiological condition Plan: Mild. St recommends continued St as an OP. Family had noticed some memory issues over the past year. Will need supervision with his meds when he goes home. Recommended no driving until he is evaluated by the drivers rehab program run by the [facility] in [place] and approved to drive. Plan 1. Continue therapy 2. Continue amlodipine at the decreased dose of 5 mg daily and Cozaar 25 mg p.o. nightly. Recheck a BMP on and if the potassium and creatinine are stable will go up on the Cozaar and down on the amlodipine. I suspect amlodipine is contributing considerably to ankle edema. 3. Recheck H&H on . Medications at Discharge Home Medications acetaminophen 500 mg tablet 1,000 mg PO Q8H PRN PAIN 1-10 AND FEVER 09/14/23 glucosamine sulfate 750 mg tablet (Paris) 750 mg PO BID supplement 09/14/23 melatonin 3 mg capsule 3 mg PO QHS sleep 09/14/23 amlodipine 5 mg tablet 5 mg PO DAILY #30 tabs 09/27/23 aspirin 81 mg chewable tablet 81 mg PO DAILY@0800 heart health #30 tabs 09/27/23 atorvastatin 40 mg tablet 40 mg PO QHS cholesterol #30 tabs 09/27/23 losartan 50 mg tablet 50 mg PO QHS #30 tabs 09/27/23 oxybutynin chloride 5 mg tablet 2.5 mg (1/2 x 5 mg) PO 2000 #15 tabs 09/27/23 tamsulosin 0.4 mg capsule (Flomax) 0.4 mg PO DAILY bladder #30 caps 09/27/23 Hospital Course Operations None Procedures Transthoracic echo (This was done at [facility] and showed the left ventricle to be of normal size with an ejection fraction estimated at 65 to 70% which is normal. Diastolic function was normal. The right ventricle was normal in size and systolic function. There was no atrial enlargement. He had mild mitral regurgitation) Summary of Care Provided Minutes Spent on Discharge: 40 Hospital Course: [facility] Medical Records Department [address] [place] [address] History & Physical Exam 09/14/231913 MR#: [id number] Acct: [id number] Name: CHUNG KNAPP Rep #: [id number] : 1940 83 From: Lorraine Amaral Cierramady [place] PCP: Dr. Hakeem Canales MD Status: ADM IN CHUNG KNAPP, is a 83-year-old M with a past medical history of remote CVA, hypertension, BPH, mitral regurgitation, mild aortic regurgitation, chronic kidney disease stage IIIa and venous insufficiency with chronic ankle edema who presented to the emergency department at [facility] on 09/09/2023 complaining of difficulty using his left leg, numbness in the left leg and falls. He normally walks without an assistive device and is still working. NIHSS was 0 at presentation to the emergency department. That being said his gait was not normal. He had weakness in his left leg but had no drift on the NIHSS. Significant lab at presentation to the emergency department included a hemoglobin of 12.2. He has been anemic for the past few years. Noncontrast CT brain showed a 3 mm thick acute subdural right parafalcine hematoma without mass effect. The ER physician was in contact with teleneurology at [facility]. The pt admitted to hitting his head that morning but, the leg weakness started the day prior to him hitting his head. BP's were elevated in the ED (180's/80's). Hemorrhagic stroke order set was initiated and he was transferred to [facility]. MRI at [facility] showed a small acute infarct involving the right basal ganglia and adjacent right frontal white matter. 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 Echocardiogram was negative for source of emboli. He has no hx of AF. He was evaluated by neurovascular and they felt the stroke was likely secondary to hypertension and small vessel disease with subdural hematoma likely secondary to trauma from falls/hitting his head. The subdural hematoma remained stable and he required no interventions. He was started on aspirin, Lipitor and amlodipine. He was also started on Flomax for symptoms of BPH (nocturia). He was placed on a 7-day course of Keppra for seizure prophylaxis. Therapy recommended discharge to acute inpatient rehab. He was admitted to the acute inpatient rehab unit at [facility] on 09/14/2023 for 3 hours of therapy daily to restore function/independence at or near his level prior to the stroke/subdural hematoma. He will follow-up in the neurovascular clinic at [facility] in 4 to 6 weeks and he was prescribed a 30-day event monitor to help evaluate for paroxysmal arrhythmias. The event monitor was placed on the patient while he was on rehab. BP was high at admission to rehab and we prescribed PRN Hydralazine and observed the BP for a few days allowing for permissive HTN. The BP remained high and the Amlodipine was increased to 10 mg which helped with the BP but, the ankle edema due to varicosities/chronic venous insufficiency got worse. The dose was decreased to 5 mg again and the edema is back to baseline and is adequately controlled with CORINA hose. 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 I did not feel a beta abner was appropriate and he was started on Cozaar 25 mg at HS. The BP is still mildly elevated. The creat and potassium were stable on Cozaar 25 mg and 1 days prior to discharge the dose was increased to 50 mg Q HS. the diastolic is always normal.....it is the systolic that is elevated. Chung had no lightheadedness with standing and ambulating while on rehab and orthostatic VS were negative for orthostatic hypotension. Would repeat a BMP in 7-10 days since he will now be taking Cozaar 50 mg at HS. Chung was anemic at presentation to rehab with a hemoglobin of 11. MCV was mildly elevated at 101.2. Looking back at old records he has been anemic since February 2017. A Hemoccult stool was negative. B12 and folate were within normal limits. Serum iron, transferrin saturation and ferritin were all within normal limits. TSH was normal. The most likely etiology of the chronic anemia is chronic renal failure. We did not check a serum protein electrophoresis or immunoelectrophoresis to rule out multiple myeloma. Chung did quite well with therapy. His modified [place] score at admission to rehab was 3 and at discharge it is down to 2. The NIHSS score was 3 at admission to rehab and down to 1 for drift with the left leg at the time of discharge. the drift is less than it was at admission. At the time of discharge Chung is independent with eating and supervision/set up for grooming, bathing, upper body dressing, lower body dressing, toileting, toilet transfer and tub/shower transfer. He can do 16 sit to stands in 30 seconds using his upper extremities to push off. He is able to ascend/descend 13 steps with 1 handrail and a straight cane at standby assist. He has ambulated up to 510 feet on various surfaces at standby assist with only 1 mild loss of balance and he was able to self-correct. He was able to dose his meds into a simulated pill organizer with 100% accuracy but speech therapy still recommends one-to-one assistance/supervision with med management to ensure accuracy at least for the first couple weeks at home. PT/OT and ST all recommend continued therapy as an outpatient following discharge from acute rehab. Speech therapy has been addressing working memory and executive functioning as well as medication management at home. Shortly after being started on Flomax we did 3 post void residuals and all were less than 200. Chung was still having nocturia hourly at night. We started him on Oxybutynin2.5 mag and now he is getting up 3-4 times a night rather than 8 times. Would continue 2.5 mg nightly for another couple weeks at home for suspected bladder spasticity. If he continues to have nocturia 3-4 times a night could increase the dose to 5 mg but, constipation, dry mouth and confusion may limit being able to increase the dose significantly. Chung was discharged home on 09/28/2023 and will have outpatient PT/OT/ST. He required no DME and told us that he has a cane and a walker at home. He has an appointment scheduled with Dr. Alonzo Colindres for neurology follow-up at [facility]. He will need to schedule an appointment with his primary care doctor, Dr. Hakeem Canales, to be seen within the next 7 to 10 days. Physical Exam Const alert, oriented x3 and no apparent distress General Appearance: cooperative, comfortable and well kempt HEENT head/scalp atraumatic and moist oral mucous membranes HEENT Narrative: Mild hearing loss. No hearing aids. Eyes PERRL, EOMs intact bilaterally, conjunctivae normal and no scleral icterus Eyes Narrative: No discharge from the eyes and no mattering of the eyelashes. Neck supple, No nodes and no carotid bruits Chest Chest: symmetrical chest wall rise Resp normal respiratory effort and clear to auscultation bilaterally Effort and Inspection: able to speak in complete sentences; Negative for tachypneic Cardio regular rate, regular rhythm and no gallops Cardio Narrative: No change in the systolic murmur heard at the apex and radiating into the left axilla which is secondary to mild mitral regurgitation. The murmur likely sounds worse than it is due to anemia. I do not hear a diastolic murmur at the aortic listening post but he is known to have mild aortic regurgitation. No ectopy. GI normal to inspection, nondistended, normoactive bowel sounds, soft to palpation and non-tender Extremity no calf tenderness Extremity Narrative: The edema today is down since we decreased amlodipine from 10 mg to 5 mg. He continues to have mild pitting edema of the left ankle only. There is no pretibial edema. He has a lot of varicosities of both LE's. General Extremity: edema Skin General Skin Exam: no breakdown Rashes: no rashes Neuro Neuro Narrative: see NIHSS Psych affect normal Appearance: grossly normal, appropriate and well kempt Attitude: calm Activity / Motor Behavior: appropriate eye contact Weight / BMI Weight Weight: 130 lb 1.164 oz Body Mass Index (BMI) 22.1 ABG / Lab / Microbiology Data 09/27/23 05:41 09/27/23 05:41 Laboratory: Laboratory Results - last 24 hr 09/27/23 05:41: Hgb 11.0 L, Hct 35.2 L, Sodium 139, Potassium 4.4, Chloride 105, Carbon Dioxide 29.0, Anion Gap 5, BUN 32 H, Creatinine 1.56 H, Estim Creat Clear Calc 29.42, Est GFR (MDRD) Af Amer 55 L, Est GFR (MDRD) Non-Af 45 L, BUN/Creatinine Ratio 20.5 H, Glucose 101, Calcium 8.7 Microbiology: Microbiology 09/20/23 09:10 Stool Stool Occult Blood (SOPHIA) - Final Indicators for Scoring Admitted with or Primary Diagnosis of CVA/Stroke: Yes Hx of CVA/Stroke: Yes Modified [place] Score MRS Score at time of Evaluation: 2-Slight disability NIHSS NIHSS 1a. Level of Consciousness: Alert; keenly responsive 1b. LOC Questions: Answers BOTH questions correctly. 1c. LOC Commands: Performs both tasks correctly. 2. Best Gaze: Normal 3. Visual: No visual loss 4. Facial Palsy: Normal symmetrical movements 5a. Left Arm: No drift; arm holds 90 (or 45) degrees for full 10 seconds 5b. Right Arm: No drift; arm holds 90 (or 45) degrees for full 10 seconds 6a. Left Leg: Drift; leg falls by the end of 5-seconds, but does not hit bed 6b. Right Leg: No drift; leg holds 30-degree position for full 5 seconds 7. Limb Ataxia: Absent 8. Sensory: Normal; no sensory loss 9. Best Language: No aphasia; normal 10. Dysarthria: Normal 11. Extinction and Inattention: No abnormality Total: 1 Stroke Questions Stroke Team Activated: No D/C Instructions Discharge Diet: Low fat / Low cholesterol Weight Bearing Status: Full weight bearing Keep extremity elevated above heart level: Legs Call your doctor if you observe: Fever of 101 or Higher, Inability to urinate, Shortness of breath, Dizziness ( lightheadedness, especially when standing.), Fainting spells, Chest pain, Increased palpitations (irregular heartbeat), Calf discomfort, Uncontrolled pain and - (STROKE symptoms: facial droop, slurred speech, inability to get words out, weakness on 1 side of the body and not the other, numbness on 1 side of the body and not the other, inability to maintain your balance sitting or standing, vertigo. ) Pending Tests Upon Discharge: none When: You will need to follow up with Dr. Hakeem Canales within 7-10 days of DC from rehab. You have an appt to follow up with Dr. Alonzo Rivera from neurology on 10/23/23 at 11:15 AM. Meaningful Use Info Meaningful Use Diagnoses (Choose all that apply): Ischemic CVA CVA Therapy Assessed for PT,OT and/or ST?: Yes Ischemic Stroke Antithrombotic order at d/c?: Yes Dx of Atrial fib/flutter?: No Anticoagulant at discharge?: No Reason anticoagulant not ordered: Treatment not Indicated Statins at discharge?: Yes Primary Dx Acute Ischemic CVA?: Yes IV thrombolytic ordered during stay?: No Reason IV thrombolytic not ordered: Procedure not Indicated Discharge Plan Admission Admit Date/Time: 09/14/23 18:35 Primary Reason for Your Visit: Post stroke debility Attending Provider: Lorraine Amador Primary Care Provider: Hakeem Canales Instructions Patient Instructions: Discharge Instructions for Stroke Additional Instructions / Restrictions: 1. Please wear the compression stockings from the time you get out of bed in the morning until you go to bed at night. This will help control the swelling in your ankles. The swelling has been a little worse lately and I suspect this may be due to one of the BP meds you are on called Amlodipine(also called Norvasc) One of the biggest side effects of this drug is swelling in the legs. We have cut the dose in half and ultimately you may need to be taken off this medication and started on a different medication. You should NOT be placed on a diuretic (water pill) because when you stand up your BP drops and then you get lightheaded. you have to make sure you are drinking at least 1 and 1/2 liters of non-caffeinated fluids a day to keep the BP from dropping when you stand up. The swelling in your legs is due to the varicose veins and the best way to control this swelling is with compression. 2. It is very important to take your medications exactly as prescribed. Using a pill box is the best way to organize the medications. You can also set an alarm on your phone to help you to remember when to take your medicines. You have some trouble with memory and I think someone from your family should help you set up your pill box for the week and then check to see if you have taken the medication. 3. Because of the stroke and the trouble with memory I do not think you should be driving until you are able to be evaluated by a driving school in [place] run by the [facility]. It is a very thorough program and they will evaluate vision, reaction time, reflexes and determine if you are safe to drive. the gave your dtr the information about the driving program. 4. You are anemic. This means your red blood cell count is lower than normal. We checked your stool for blood and it was negative. You have been anemic for a few years now. This may be due to the chronic kidney disease you have but, your doctor may want to do additional testing to see if it is possibly due to something else. We checked your thyroid and it is normal. The blood count has been stable since you arrived on rehab. We also checked B12, iron and folate and these values are also normal. the most likely reason for the anemia is the chronic kidney disease. 5. the reason you get up so much at night is NOT because you are retaining. I suspect you have bladder spasms. We started you on a medication called Oxybutynin at night. the number of times you get up at night has decreased but, you still are getting up 2 times or more. Your doctor may want to increase the dose. Side effects of this medication include dry mouth, constipation, confusion. If you have any of these problems tell your doctor right away. 6. It has been a pleasure having you on rehab and you have worked hard to get better. If you ever need our help again we will be here for you. If you or your family have any questions after leaving rehab please do not hesitate to call. OFFICE: [phone] CELL: [phone] NURSES STATION ON REHAB: [phone] Discharge Orders/Prescriptions Prescriptions: New losartan 50 mg Tablet 50 mg PO QHS Qty: 30 0RF amlodipine 5 mg Tablet 5 mg PO DAILY Qty: 30 0RF oxybutynin chloride 5 mg Tablet 2.5 mg PO 1999 Qty: 15 0RF Rx Instructions: 1/2 tab at bedtime to cut down on urination at night. Continued glucosamine sulfate [Paris] 750 mg tablet 750 mg PO BID Rx Instructions: administer with meals acetaminophen 500 mg tablet 1,000 mg PO Q8H PRN (Reason: PAIN 1-10 AND FEVER) melatonin 3 mg capsule 3 mg PO QHS atorvastatin 40 mg tablet 40 mg PO QHS Qty: 30 0RF tamsulosin [Flomax] 0.4 mg capsule 0.4 mg PO DAILY Qty: 30 0RF aspirin 81 MG tablet,chewable 81 mg PO DAILY@0800 Qty: 30 0RF Rx Instructions: Take this medication with food Discontinued amlodipine 10 mg tablet 10 mg PO DAILY levetiracetam [Keppra] 500 mg tablet 500 mg PO Q12H ferrous sulfate [Feosol] 325 mg (65 mg iron) tablet 325 mg PO DAILY hydralazine 10 mg tablet 10 mg PO Q4H PRN (Reason: hypertension) Patient Comments: For systolic >160, diastolic >90 Rx Instructions: until target blood pressure attained alum-mag hydroxide-simeth [Advanced Antacid-Antigas] 200-200-20 mg/5 mL suspension 5 ml PO Q6H PRN (Reason: indigestion) polyethylene glycol 3350 [ClearLax] 17 gram/dose powder 17 g PO DAILY Referrals / Follow Up: Alonzo Colindres-Neurology [Other] - 10/23/23 11:15 am Hakeem Canales MD [Primary Care Provider] - Disposition Disposition (needs filled in before D/C Order can be placed): Home, Self Care Charges/Coding Visit Charges Inpatient E&M: 89984 Disch Hosp >30min
[2023-09-27 19:39] VITALS: BP 141/62; PULSE 65; RESP 17; TEMP 37.2; O2SAT 96
[2023-09-27 19:49] VITALS: BMI 22.1
[2023-09-27] MEDS: Oxybutynin 5 MG Tablet 2.5 MG PO (20:30)
[2023-09-27] MEDS: MELATONIN 3 MG TABLET PO (21:15)
[2023-09-27] MEDS: Atorvastatin Calcium 40 MG Tablet PO (21:15)
[2023-09-27] MEDS: Losartan Potassium 50 MG Tablet PO (21:15)
[2023-09-27 22:00] VITALS: PULSE 78; RESP 16; O2SAT 96
[2023-09-28 06:00] VITALS: BMI 22.3
[2023-09-28] MEDS: Ferrous Sulfate 325 MG Tablet PO (08:10)
[2023-09-28] MEDS: Aspirin 81 MG TAB.CHEW PO (08:11)
[2023-09-28] MEDS: Tamsulosin HCl 0.4 MG Capsule PO (08:11)
[2023-09-28] MEDS: amLODIPine 5 MG Tablet PO (08:11)
[2023-09-28 08:40] VITALS: BP 143/63; PULSE 58; RESP 16; TEMP 37; O2SAT 96; BMI 22.3
--- NOTE | 2023-09-28 11:00 | NURSING ---
DC instruct given to patient and daughter and verbalized understanding. Daughter reported she got information that she has not looked at for his driving school but that she will.
== END 2023-09-28 11:00 | disposition home or self-care (01) | DRG 56 ==
PROVIDERS: Admitting Provider Internal Medicine; PCP Family Medicine; Visit Provider Internal Medicine
DX: I69.393 Ataxia following cerebral infarction (principal); I62.00 Nontraumatic subdural hemorrhage, unspecified; N18.31 Chronic kidney disease, stage 3a; I69.349 Monoplegia of lower limb following cerebral infarction affecting unspecified side; I12.9 Hypertensive chronic kidney disease with stage 1 through stage 4 chronic kidney disease, or unspecified chronic kidney disease; D63.1 Anemia in chronic kidney disease; I69.398 Other sequelae of cerebral infarction; W19.XXXD Unspecified fall, subsequent encounter; N40.1 Benign prostatic hyperplasia with lower urinary tract symptoms; R35.1 Nocturia; Z79.899 Other long term (current) drug therapy; Z79.82 Long term (current) use of aspirin; R20.0 Anesthesia of skin; S06.5XAD Traumatic subdural hemorrhage with loss of consciousness status unknown, subsequent encounter
CPT/HCPCS: 36415; 80048; 81001; 82040; 82274; 82607; 82728; 82746; 83540; 83550; 83735; 84100; 84443; 85014; 85018; 85027; 92507; 92523; 97110; 97112; 97116; 97129; 97130; 97163; 97166; 97530; 97535; 97802

== ENCOUNTER 2023-11-13 10:00 | Outpatient (RCR) | payer MEDICARE, SELFPAY ==
--- NOTE | 2023-10-09 11:43 | HP.PTEVAL_ITS ---
Patient's Visit Information Visit Information Visit Information: ELADIA KNAPP is a 83 year old M referred to Physical Therapy by Dr. Lorraine Amador DO with a diagnosis of STROKE. Date of Evaluation: 10/09/23 Physical Therapist: Hernan Perez, PT, Cert MDT, [facility] Visit Plan Frequency: 2x /Week Duration: 6 Weeks Plan: PT INTERVENTIONS PROGRESSIVE GAIT TRAINING ,BALANCE PROGRAM ,BLE STRENGTHE NGA ( LLE) ,FUNCTIONAL STRENGTHENING AND AEROBIC EX'S Subjective Subjective: This 83 y/o male presents to physical therapy with CVA on 09/09/23 . Patient had difficulty using left leg and numbness in left arm. Patient had CT SCAN showed acute dural hematoma. Patient transferred to [facility] the MRI showed small infarct involving the right basal ganglia and front white matter. Patient was at [facility] ~ 1 week and return Rehab on 4th floor ~ 2 weeks and d/c to home 09/28/23.Patient has 2 story home with 3 steps with rail. Patient has walk in shower with bar. Patient is able to dress and bath Independant . Patient uses cane with gait, C/O paresthesia/tingling left arm. Patient has no falls . Patient condition affects QOL and function. Patient goals to walk and left leg stronger. SOCIAL: VOCATION: retired Objective Objective: POSTURE: mild forward posture hips/knees slightly flexed GAIT: ambulates with straight cane 2 point gait slight ataxia LLE BALANCE: good- with cane AROM: BLE WFL MMT: quads/hams 4/5 ,hip flexion 4-/5 ,ankle 4/5 ( peak force ) hip abduction 12.8 STAIRS: one step at time with rails and cane Balance/Special Test Scores Functional Gait Assessment Score: 11 % Disability: 63.3400 CATSIB Score (Max score 120 seconds): 65 Lower Extremity Functional Score: 22 Goals Goal 1:: Patient to be I with HEP Goal Time Frame: 4-6 Weeks Goal 2:: Patient to improve CATSIB BY 5-10 points to improve balance Goal Time Frame: 4-6 Weeks Goal 3:: Patient to improve functional gait assessment score by 5-10 points to improve gait and risk of falls Goal Time Frame: 4-6 Weeks Goal 4:: Patient to improve LFES score by 5-10 points to improve QOL and function Goal 5:: Patient to improve hip abduction peak force by 5-10 # to improve strength Goal Time Frame: 4-6 Weeks Goal 6:: Patient to demonstrate 50% improvement with increase gait and improved function Goal Time Frame: 4-6 Weeks Rehabilitation Potential Physical Therapy Diagnosis: This patient had CVA with left side weakness impairs gait and balance and function with ADLS thus benefit from skilled PT Rehabilitation Potential: Good Anticipated Interventions Patient/Client Instruction: Educate patient on: Condition and Plan of Care For the Purpose of:: To decrease pain, To increase ROM, To improve muscle performance and motor function, To improve ability to perform ADL's, To increase tolerance to activity/condition/position, To improve ability of physical actions for home/community/work/leisure, To improve gait and locomotor functions, To increase flexibility/ROM, To improve endurance, To improve balance and To improve tolerance to ADL's Therapeutic Exercise to Include: Strength training, Endurance training, Balance training, Gait and locomotor training and Active ROM Comment: BLE For the Purpose of:: To decrease pain, To increase ROM, To improve muscle performance and motor function, To increase tolerance to activity/condition/position, To improve ability of physical actions for home/community/work/leisure, To improve gait and locomotor functions, To increase flexibility/ROM, To improve endurance, To improve balance, To improve safety with gait and To improve tolerance to ADL's Text: Thank you for the opportunity to evaluate your patient. For Medicare and Medicare HMO plans, please review the plan of care and approve it. It will need to be FAXED BACK to us at [phone] for Medicare purposes. For Medicare only, by signing this I certify the plan of care. Please let me know if there are questions or concerns regarding this plan of care. Physician Signature: Date:
--- NOTE | 2024-02-08 13:40 | HP.PTDCSUM_ITS ---
Discharge Summary D/C summary: It has been my pleasure to treat ELADIA KNAPP referred by Dr. Lorraine Amador DO, with the diagnosis of STROKE for a total of 8 visit(s). Discharge Date: 11/13/23 Please see the following information for a summary of their discharge status. Subjective Subjective: Doing well ready for d/c do ex's at home walking at home with dog Objective Objective/Function: POSTURE: mild forward posture hips/knees slightly flexed GAIT: ambulates with straight cane 2 point gait slight ataxia LLE BALANCE: good- with cane AROM: BLE WFL MMT: quads/hams 4/5 ,hip flexion 4-/5 ,ankle 4/5 ( peak force ) hip abduction 18.2 STAIRS: one step at time with rails and cane Goals Goal 1:: Patient to be I with HEP Goal Progress: Goal Met Goal 2:: Patient to improve CATSIB BY 5-10 points to improve balance Goal Progress: Goal Met Goal 3:: Patient to improve functional gait assessment score by 5-10 points to improve gait and risk of falls Goal Progress: Goal Met Goal 4:: Patient to improve LFES score by 5-10 points to improve QOL and function Goal Progress: Goal Met Goal 5:: Patient to improve hip abduction peak force by 5-10 # to improve stren gth Goal Progress: Goal Met Goal 6:: Patient to demonstrate 50% improvement with increase gait and improved function Goal Progress: Goal Met Plan Plan: D/C TO HEP D/C Information Discharge Comments: HEP d/c sentence: If there are questions or concerns regarding this patient's physical therapy, please feel free to call me at [phone]. Thank you for the referral of this patient. Sincerely, Hernan Perez, PT, Cert MDT, OCS Balance/Gait/Functional tests Balance/Special Test Scores Functional Gait Assessment Score: 20 % Disability: 33.3400 CATSIB Score (Max score 120 seconds): 79 Lower Extremity Functional Score: 36
== END 2023-11-13 19:00 | disposition home or self-care (01) ==
LOC: PT 10:00
PROVIDERS: PCP Family Medicine; Referring Provider Internal Medicine; Visit Provider Internal Medicine
DX: Z86.73 Personal history of transient ischemic attack (TIA), and cerebral infarction without residual deficits (principal); F09 Unspecified mental disorder due to known physiological condition
CPT/HCPCS: 97110; 97162; 97530

== ENCOUNTER → 2023-11-20 | Outpatient (CLI) | payer MEDICARE, SELFPAY ==
[2023-11-20 16:48] LABS: PSA,Total- Diagnostic 6.59 ng/mL (0.0-4.0)
== END | disposition home or self-care (01) ==
LOC: LAB 14:57
PROVIDERS: PCP Family Medicine; Referring Provider Urology; Visit Provider Urology
DX: N40.2 Nodular prostate without lower urinary tract symptoms (principal)
CPT/HCPCS: 36415; 84153

== ENCOUNTER → 2023-12-17 | Outpatient (CLI) | payer MEDICARE, SELFPAY ==
--- NOTE | 2023-12-17 13:00 | PROSBIL_PTH ---
PATIENT: ELADIA KNAPP LOC: [facility] U#:[id number] AGE/SX: 83/M ROOM: RE12/17/[address]: Dr. Alexi Briceno MD : 1940 BED: DIS: 12/17/2023 SPEC #: [id number] RECD: 12/17/23 18:01 STATUS: JACQUELYN JOSE JUAN #: [id number] WING: 12/17/23 13:[address]: Alexi Briceno DEPT: SURGICAL PATHOLOGY RECD BY: Betty Singh ENTERED: 12/18/23 09:57 SP TYPE: PROST BX MIRTHA DR: Dr. Hakeem Canales MD Tissues: A - PROSTATE RIGHT B - PROSTATE RIGHT C - PROSTATE RIGHT D - PROSTATE LEFT E - PROSTATE LEFT F - PROSTATE LEFT Procedures: PROSTATE BX HEADER OPERATION: Prostate biopsy PRE-OP DIAGNOSIS: Elevated PSA TISSUE SUBMITTED: A - Right apex, B - Right mid, C - Right base, D - Left apex, E - Left mid, F - Left base MICROSCOPIC DIAGNOSIS A. Right prostate, apex, core biopsy: Prostatic adenocarcinoma. Jose grade: 3+4=7 Number of cores involved: 1/1 Proportion of tissue involved: <5 % Perineural invasion: Not identified. Greatest tumor length: <0.1cm B. Right prostate, mid, core biopsy: Prostatic adenocarcinoma. Melvin grade: 4+4=8 Number of cores involved: 1/1 Proportion of tissue involved: 50% Perineural invasion: Not identified. Greatest tumor length: 0.5 cm C. Right prostate, base, core biopsy: Prostatic adenocarcinoma. Melvin grade: 5+4=9 Number of cores involved: 1/1 Proportion of tissue involved: ~30 % Perineural invasion: Present, focal. Greatest tumor length: 0.3 cm D. Left prostate, apex, core biopsy: Prostatic tissue, negative for malignancy. Focal atrophy. E. Left prostate, mid, core biopsy: Prostatic tissue, negative for malignancy. F. Left prostate, base, core biopsy: Prostatic tissue, negative for malignancy. SJ/mr 12/19/2023 COMMENT Case has been reviewed in consultation with Dr. Gilbert who concurs with the above diagnosis. IDC:AM MICROSCOPIC DESCRIPTION Slides are reviewed. GROSS DESCRIPTION A - Received is one container designated prostate, right apex. The specimen consists of one elongated fragments of light varela-white soft tissue measuring 1.0 cm in length and 0.1 cm in diameter. The specimen is totally submitted in one cassette. B - Received is one container designated prostate, right mid. The specimen consists of one elongated fragments of light varela-white soft tissue measuring 1.4 cm in length and 0.1 cm in diameter. The specimen is totally submitted in one cassette. C - Received is one container designated prostate, right base. The specimen consists of one elongated fragments of light varela-white soft tissue measuring 1.1 cm in length and 0.1 cm in diameter. The specimen is totally submitted in one cassette. D - Received is one container designated prostate, left apex. The specimen consists of one elongated fragments of light varela-white soft tissue measuring 0.9 cm in length and 0.1 cm in diameter. The specimen is totally submitted in one cassette. E - Received is one container designated prostate, left mid. The specimen consists of one elongated fragments of light varela-white soft tissue measuring 1.0 cm in length and 0.1 cm in diameter. The specimen is totally submitted in one cassette. F - Received is one container designated prostate, left base. The specimen consists of one elongated fragments of light varela-white soft tissue measuring 1.1 cm in length and 0.1 cm in diameter. The specimen is totally submitted in one cassette. [place]/ 12/18/23 TC:0 [facility]: [id number]
== END | disposition home or self-care (01) ==
PROVIDERS: PCP Family Medicine; Referring Provider Urology; Visit Provider Urology
DX: R97.20 Elevated prostate specific antigen [PSA] (principal)
CPT/HCPCS: 88305; G0416

== ENCOUNTER → 2024-01-09 | Outpatient (CLI) | payer MEDICARE, SELFPAY ==
--- NOTE | 2024-01-09 12:38 | CT_ITS ---
STUDY: CT ABDOMEN AND PELVIS WITH CONTRAST REASON FOR EXAM: Male, 83 years old. PROSTATE CA RADIATION DOSAGE (If Supplied By Facility): CTDIvol = ( 11.59 ) mGy, DLP = ( 322.16 ) mGycm TECHNIQUE: Transaxial images were obtained from the dome of the diaphragm to the symphysis pubis without oral contrast. IV 100mL Isovue-300 was administered. Sagittal and coronal images were reconstructed. Individualized dose optimization techniques were used for this CT. COMPARISON: None. FINDINGS: The visualized lung bases are unremarkable. The visualized portions of the heart are within normal limits. Normal liver. Normal gallbladder and extrahepatic biliary system. Normal spleen. Normal pancreas. Normal bilateral adrenal glands. Normal right kidney. Normal left kidney. Normal visualized stomach. Normal small intestine. Normal colon. There is non-visualization of the appendix. There is diffuse atherosclerotic calcification of the abdominal aorta, without a demonstrated aneurysm. Normal inferior vena cava. Normal retroperitoneum. Normal urinary bladder. There are prostatic calcifications. Normal abdominal wall. Mild dextroscoliosis lumbar spine with degenerative disc disease per CT/Abdomen/Pelvis WITH Contrast IMPRESSION: Normal enhanced CT of the abdomen and pelvis. Electronically Signed: Carlitos Chong MD at 16:42 EDT ,
[2024-01-09 13:12] LABS: CREATININE FINGERSTICK 1.2 mg/dL (0.70-1.30)
== END | disposition home or self-care (01) ==
LOC: CT 12:34
PROVIDERS: PCP Family Medicine; Referring Provider Urology; Visit Provider Urology
DX: C61 Malignant neoplasm of prostate (principal)
CPT/HCPCS: 74177; Q9967

== ENCOUNTER → 2024-01-17 | Outpatient (CLI) | payer MEDICARE, SELFPAY ==
--- NOTE | 2024-01-17 07:51 | NM_ITS ---
CLINICAL: 83-year-old male with history of primary prostate carcinoma. WHOLE BODY 99m Tc MDP RADIONUCLIDE BONE SCINTIGRAPHY COMPARISON: CT of the abdomen-pelvis report 01/09/2024 FINDINGS: Following the intravenous administration of 25.0 mCi of 99m Tc MDP, whole body bone images reveal: 1. Increased tracer concentration is defined in the acromioclavicular and sternoclavicular compartments of both shoulders, the elbows bilaterally, the medial tibial compartment of the right knee. 2. The remaining skeletal structures are scintigraphically unremarkable with normal-appearing renal images and urinary bladder activity identified. Facilitated uptake is noted in the lateral tibial plateau of the left proximal tibia metaphysis. NM/Bone Scan Whole Body IMPRESSION: 1. The increase in radiopharmaceutical concentration defined in the bilateral shoulders, the elbows, right knee is most consistent with degenerative arthrosis. 2. Periostitis appears evident in the region of the left proximal tibial metaphysis laterally. Plain film radiography correlation may be of benefit. 3. There is no definitive scintigraphic evidence of diffuse axial skeletal metastatic disease. Electronically Signed: Carlitos Feliz DO at 9:45 EDT ,
== END | disposition home or self-care (01) ==
LOC: NM 07:43
PROVIDERS: PCP Family Medicine; Referring Provider Urology; Visit Provider Urology
DX: C61 Malignant neoplasm of prostate (principal)
CPT/HCPCS: 78306; A9503

== ENCOUNTER 2024-02-20 05:52 | Day surgery (SDC) | payer MEDICARE, SELFPAY ==
[2024-02-20] VITALS (7 sets, daily range): BP systolic 104–152; BP diastolic 50–74; PULSE 45–56; RESP 14–18; TEMP 36.4–36.6; O2SAT 96–100; BMI 22.2
[2024-02-20] MEDS: Lactated Ringers 1,000 ML 15 ML IV (06:20)
[2024-02-20] MEDS: Cefazolin 2 GM in 0.9% Normal Saline (100mL Bag) 100 ML IV (07:30)
--- NOTE | 2024-02-20 07:30 | PCM.PRE.AN2 ---
ASA Classification* ASA Classification ASA Classification: 3 Assessment & Plan Anesthesia* Anesthesia Assessment Anesthesia Assessment: Discussed sedation and/or anesthesia options, risks, benefits, and alternatives with patient/parents/legal guardian/POA. Questions invited. The patient/parents/legal guardian/POA seems to understand and agrees to proceed with anesthesia plan. Reviewed the physical assessment, medical history, allergy history and patient home medications list prior to surgery/procedure/anesthetic and documented any changes. Performed airway and anesthesia risk assessments. Anesthesia Type Anesthesia Type: MAC Anesthesia Focused Assessment* Temperature: 97.8 F Pulse Rate: 52 Blood Pressure: 152/58 Respiratory Rate: 16 Pulse Ox: 99 Airway Assessment Mouth opens: >3 cm Mallampati Score: II Focused Labs Anesthesia Preop lab: CBC WBC 5.8 K/mm3 (4.4-11.0) 09/15/23 08:50 RBC 3.39 M/mm3 (4.6-6.2) L 09/15/23 08:50 Hgb 11.0 g/dL (13.0-16.5) L 09/27/23 05:41 Hct 35.2 % (40-54) L 09/27/23 05:41 Plt Count 189 K/mm3 (150-450) 09/15/23 08:50 CHEMISTRY Potassium 4.4 mmol/L (3.5-5.1) 09/27/23 05:41 Sodium 139 mmol/L (136-145) 09/27/23 05:41 Magnesium 2.2 mg/dL (1.6-2.6) 09/15/23 08:50 Phosphorus 2.8 mg/dL (2.5-4.9) 09/15/23 08:50 BUN 32 mg/dL (7-18) H 09/27/23 05:41 Creatinine 1.56 mg/dL (0.70-1.30) H 09/27/23 05:41 Glucose 101 mg/dL (74-106) 09/27/23 05:41 POC Glucose 98 mg/dL (74-106) 09/09/23 10:28 TSH 1.91 uIU/mL (0.358-3.74) 09/21/23 05:48 COAG PT 13.8 SECONDS (11.7-14.9) 09/09/23 10:18 Pre-Assessment Diagnosis/Proposed Procedure Planned Operative Procedure(s): SPACE OARS GOLD MARKERS PLACEMENT Anesthesia History Anesthesia History - community support professional: Anesthesia History - community support professional Hx Hospitalization Yes: 09/2023 STROKE 02/15/24 14:26 Any Problems With Anesthesia No 02/15/24 14:26 Cholinesterase deficiency No 02/15/24 14:26 You/Your Family Experience No 02/15/24 14:26 fever (hyperthermia) with Relationship Recent Exposure to Contagious No 02/20/24 06:20 Disease Does patient have nerve No 02/15/24 14:26 stimulator Patient instructed to have device shut off --Does patient have Pacemaker No 02/20/24 06:20 or ICD? When Was Last Pacemaker Check QUESTION #4 FULL TEXT: You/Your Family Experience fever (hyperthermia) with Anesthesia Last Oral Intake Last Oral intake: Last Oral Intake NPO since 04:30 02/20/24 06:20 Meds taken in AM with sips of Yes 02/20/24 06:20 water? Meds patient instructed to amlodipine 02/20/24 06:20 take am of surgery PONV PONV - community support professional: PONV - community support professional Female No 02/15/24 14:26 HX of Motion Sickness No 02/15/24 14:26 HX of N/V After Surgery No 02/15/24 14:26 Non-Smoker Yes 02/15/24 14:26 Duration of Surgery greater No 02/15/24 14:26 than 60 minutes Number of Risk Factors 1 02/15/24 14:26 PONV Score Low Risk 02/15/24 14:26 Height & Weight Height & Weight: Anesthesia: Height & Weight Height 5 ft 4 in 02/20/24 06:20 Weight: 58.8 kg 02/20/24 06:20 Body Mass Index (BMI) 22.2 02/20/24 06:20 Respiratory Assessment Respiratory Assessment - community support professional: Respiratory Tract Infection Hx - community support professional Hx Respiratory Tract Infection No 02/15/24 14:26 STOP Sleep Apnea STOP Sleep Apnea - community support professional: STOP Sleep Apnea - community support professional Hx Hypertension Yes: CONTROLLED WITH MED 02/15/24 14:26 Hx Sleep Apnea No 02/15/24 14:26 CPAP BIPAP Do you snore loudly (louder No 02/15/24 14:26 than talking or can be heard Do you often feel tired/ Yes 02/15/24 14:26 fatigued/ sleepy during daytime? Has anyone observed you stop No 02/15/24 14:26 breathing during sleep? STOP Results Positive 02/15/24 14:26 QUESTION #5 FULL TEXT : Do you snore loudly (louder than talking or can be heard through closed doors)? 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 Specify any problems Hx of Preganancy in last 3 N/A 02/15/24 14:26 Months Nurse Filling Out Transfusion DSCHRIBER 02/15/24 14:26 & Questions: Date: 02/15/24 02/15/24 14:26 Time: 14:28 02/15/24 14:26 Patient unable to answer at this time (ie. confused, unrespo /Reproduction History /Reproductive History - community support professional: /Reproductive Hx- community support professional Hx Now No 02/15/24 14:26 Gestational Age (in weeks): EDC: Hx Hx Para Hx Section SAB No 02/15/24 14:26 Active Medications Active Medications: Current Medications Generic Name Dose Route Start Last Admin Trade Name Freq PRN Reason Stop Dose Admin Cefazolin Sodium 2 gm/ Sodium 110 mls @ 150 mls/hr 02/20/24 07:30 Chloride IV 02/20/24 08:13 PREOP ONE Lactated Ringer's 1,000 mls @ 15 mls/hr 02/20/24 06:00 02/20/24 06:20 IV 15 mls/hr .Q48H CHEPE Administration PFSH Medical History Loss of hearing Alcohol use Ambulates with cane Injury of head and neck Stroke/cerebrovascular accident Non-smoker History of edema History of stress test Hx of fracture of forearm Prostate cancer Anemia of chronic renal failure, stage 3 (moderate) Aortic regurgitation Mitral regurgitation Chronic renal failure, stage 3b Macrocytic anemia BPH associated with nocturia Remote history of stroke Subdural hematoma HTN (hypertension) Left inguinal hernia Home Medications ?Medication ?Instructions ?Recorded ?Last Taken ?Type acetaminophen 500 mg tablet 1,000 mg PO Q8H PRN PAIN 1-10 AND 09/14/23 Unknown History FEVER glucosamine sulfate 750 mg tablet 750 mg PO BID supplement 09/14/23 Unknown History ([place]) melatonin 3 mg capsule 3 mg PO QHS sleep 09/14/23 Unknown History amlodipine 5 mg tablet 5 mg PO DAILY #30 tabs 09/27/23 02/20/24 04:30 Rx aspirin 81 mg chewable tablet 81 mg PO DAILY@0800 heart health 09/27/23 02/12/24 Rx #30 tabs atorvastatin 40 mg tablet 40 mg PO QHS cholesterol #30 tabs 09/27/23 Unknown Rx losartan 50 mg tablet 50 mg PO QHS #30 tabs 09/27/23 Unknown Rx oxybutynin chloride 5 mg tablet 2.5 mg (1/2 x 5 mg) PO 2000 #15 09/27/23 Unknown Rx tabs cholecalciferol (vitamin D3) 25 25 mcg PO DAILY 02/15/24 Unknown History mcg (1,000 unit) capsule (Vitamin D3) potassium gluconate 595 mg (99 mg) 595 mg PO DAILY 02/15/24 Unknown History tablet tamsulosin 0.4 mg capsule (Flomax) 0.4 mg PO QHS bladder 02/15/24 Unknown History vitamin B complex 1 tab PO DAILY 02/15/24 Unknown History Allergy/AdvReac Type Severity Reaction Status Date / Time No Known Allergies Allergy Verified 02/20/24 06:30 Surgical History Hx of right cataract extraction Hx of colonoscopy Hx of left inguinal hernia repair History of prostate biopsy Social History household members: spouse housing: house Smoking Status: Never smoker alcohol intake: current alcohol intake frequency: other details: moderate substance use type: does not use Review of Systems (Anesthesia) ROS Narrative System reviewed and no additional complaints, except as documented.
--- NOTE | 2024-02-20 07:31 | PCM.HP.STD ---
HPI - General General Date of Service: 02/20/24 Chief Complaint: Prostate cancer HPI Narrative ELADIA KNAPP, is a 83 M who presents for placement of gold markers and spacer gel to treat prostate cancer he is planning to have radiation therapy and hormone deprivation therapy [facility] Medical History Loss of hearing Alcohol use Ambulates with cane Injury of head and neck Stroke/cerebrovascular accident Non-smoker History of edema History of stress test Hx of fracture of forearm Prostate cancer Anemia of chronic renal failure, stage 3 (moderate) Aortic regurgitation Mitral regurgitation Chronic renal failure, stage 3b Macrocytic anemia BPH associated with nocturia Remote history of stroke Subdural hematoma HTN (hypertension) Left inguinal hernia Home Medications ?Medication ?Instructions ?Recorded ?Last Taken ?Type acetaminophen 500 mg tablet 1,000 mg PO Q8H PRN PAIN 1-10 AND 09/14/23 Unknown History FEVER glucosamine sulfate 750 mg tablet 750 mg PO BID supplement 09/14/23 Unknown History ([place]) melatonin 3 mg capsule 3 mg PO QHS sleep 09/14/23 Unknown History amlodipine 5 mg tablet 5 mg PO DAILY #30 tabs 09/27/23 02/20/24 04:30 Rx aspirin 81 mg chewable tablet 81 mg PO DAILY@0800 heart health 09/27/23 02/12/24 Rx #30 tabs atorvastatin 40 mg tablet 40 mg PO QHS cholesterol #30 tabs 09/27/23 Unknown Rx losartan 50 mg tablet 50 mg PO QHS #30 tabs 09/27/23 Unknown Rx oxybutynin chloride 5 mg tablet 2.5 mg (1/2 x 5 mg) PO 2000 #15 09/27/23 Unknown Rx tabs cholecalciferol (vitamin D3) 25 25 mcg PO DAILY 02/15/24 Unknown History mcg (1,000 unit) capsule (Vitamin D3) potassium gluconate 595 mg (99 mg) 595 mg PO DAILY 02/15/24 Unknown History tablet tamsulosin 0.4 mg capsule (Flomax) 0.4 mg PO QHS bladder 02/15/24 Unknown History vitamin B complex 1 tab PO DAILY 02/15/24 Unknown History Allergy/AdvReac Type Severity Reaction Status Date / Time No Known Allergies Allergy Verified 02/20/24 06:30 Surgical History Hx of right cataract extraction Hx of colonoscopy Hx of left inguinal hernia repair History of prostate biopsy Social History household members: spouse housing: house Smoking Status: Never smoker alcohol intake: current alcohol intake frequency: other details: moderate substance use type: does not use Vital Signs Vital Signs Vital Signs: 02/20/24 06:20 02/20/24 06:20 02/20/24 07:30 Temperature 97.8 F 97.8 F Temperature Source Temporal Pulse Rate 52 L 52 L Respiratory Rate 16 16 Respiratory Pattern Normal Blood Pressure 152/58 H 152/58 H Blood Pressure Mean 89 Blood Pressure Source Monitor Blood Pressure Position Sitting Blood Pressure Location Right Arm Pulse Ox 99 99 Oxygen Delivery Method Room Air Weight Weight: 58.8 kg Body Mass Index (BMI) 22.2
--- NOTE | 2024-02-20 07:32 | DCINST_ITS ---
Discharge Instructions Diet Discharge Diet: No restrictions Activity Discharge Activity: Return to Normal Activity and May Not Drive (while taking narcotic pain medications.) Dressing / Incision Call your doctor if you observe: Fever of 101 or Higher Follow Up Care Please Follow Up With: Alexi Briceno MD When: Call [phone] for an appointment Test Results: Test results from this visit will be discussed in further detail at your follow- up appointment, if applicable. Discharge Plan Admission Primary Reason for Your Visit: Markers and spacer gel Attending Provider: Alexi Briceno Primary Care Provider: Hakeem Canales Instructions Print Language: [place] Discharge Orders/Prescriptions Prescriptions: No Action glucosamine sulfate [[place]] 750 mg tablet 750 mg PO BID Rx Instructions: administer with meals acetaminophen 500 mg tablet 1,000 mg PO Q8H PRN (Reason: PAIN 1-10 AND FEVER) melatonin 3 mg capsule 3 mg PO QHS losartan 50 mg Tablet 50 mg PO QHS Qty: 30 0RF amlodipine 5 mg Tablet 5 mg PO DAILY Qty: 30 0RF oxybutynin chloride 5 mg Tablet 2.5 mg PO 1999 Qty: 15 0RF Rx Instructions: 1/2 tab at bedtime to cut down on urination at night. atorvastatin 40 mg tablet 40 mg PO QHS Qty: 30 0RF aspirin 81 MG tablet,chewable 81 mg PO DAILY@0800 Qty: 30 0RF Rx Instructions: Take this medication with food vitamin B complex Tablet 1 tab PO DAILY potassium gluconate 595 mg (99 mg) tablet 595 mg PO DAILY cholecalciferol (vitamin D3) [Vitamin D3] 25 mcg (1,000 unit) capsule 25 mcg PO DAILY tamsulosin [Flomax] 0.4 mg capsule 0.4 mg PO QHS Referrals / Follow Up: Alexi Briceno MD [Med Staff - Active Staff] - Hakeem Canales MD [Primary Care Provider] - Disposition Disposition (needs filled in before D/C Order can be placed): Home, Self Care
--- NOTE | 2024-02-20 07:33 | OP.PCM_ITS ---
Report of Operation Date of Procedure: 02/20/24 Pre-Operative Diagnosis: Prostate cancer Post-Operative Diagnosis: The same Surgery/Procedure Performed:: Placement of spacer gel matrix and gold markers for radiation Description of Surgical Findings:: In the preoperative area I reviewed with the patient how the procedure is done we talked about the risk of the procedure including the risk of infection, bleeding, migration of the spacer gel, the patient is planning to have radiation to the prostate he understands that the spacer gel has demonstrated benefit in reducing the risk of toxicity from the ration radiation to the rectum but there is no guarantees that this spacer gel will prevent any serious complications or toxicity to the rectum or bowels. After reviewing this with the patient and his family organ to proceed with placement of a spacer gel matrix. Patient was taken back to the operating room after smooth induction of anesthesia he was placed supine on the table. The genitals and perineum were prepped and draped in usual sterile fashion. An ultrasound probe was placed into the rectum and biplanar ultrasound was performed on the prostate. Identified the base mid and apex of the prostate identified the transition zone prostate. Then using a needle the first golf ball marker was placed into the right base of the prostate, the second golf ball marker was placed in the left base of the prostate, and the third core marker was placed in the right apex of the prostate after all 3 markers were placed the placement of the markers were confirmed by ultrasonography.I then introduced a biplanar ultrasound probe into the rectum and performed ultrasonography and identified the Denonvilliers' fascia the prostate mid base and apex and seminal vesicles. The spacer gel mix was then prepared on the back table per manufactures instruction. Under ultrasound guidance in the midline perineum a bevel needle down we advanced through the perineum below the prostate into the space of Denonvilliers' fascia. This space which could be identified by ultrasound with a bright white layer between the prostate and the rectum. I then injected a puff of normal saline to identify the space further. After I confirmed that the needle was in the correct space in the mid prostate and the space of Denonvilliers' fascia between the rectum and the prostate. Then over the course of 15 seconds the gel matrix was injected slowly there was nice separation between the prostate and the rectum at the gel matrix was injected. The position of the gel matrix was confirmed by ultrasound. Then the injection needle was removed intact. Patient's perineum was cleaned [facility] and then taken back to the PACU in good condition. Surgeon: Alexi Briceno Type of Anesthesia: General Drains: none Estimated Blood Loss (mL): 0 Admit VTE Documentation VTE Present on Admission: No VTE Mechan Device Prophylaxis: SCD's VTE Pharm Prophylaxis ordered?: No
[2024-02-20] MEDS: 0.9% Normal Saline (Pres. free 10 ML Vial (07:49)
--- NOTE | 2024-02-20 07:58 | PCM.POST.ANE ---
Anesthesia: Postop Eval I Current Vital Signs Temperature: 97.5 F Pulse Rate: 51 Blood Pressure: 104/50 Respiratory Rate: 14 Pulse Ox: 100 Oxygen Delivery Method: Room Air Assessment Airway patent: Yes Spontaneous unlabored respirations: Yes Mental status: Awake and Calm nausea: No Vomiting: No Anesthesia Complication: No Fluid Hydration Crystalloid volume administer (ml): 700 Total IV fluid infused: 700 Progress Note Anesthesia document: Postop Eval 1 completed: Yes
--- NOTE | 2024-02-20 08:26 | POSTOPAN2_ITS ---
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 Spontaneous unlabored Yes 02/20/24 08:03 [employer]YING [employer] WORKER.GDOTT respirations Mental status Awake,Calm 02/20/24 08:03 [employer]YING [employer] WORKER.GDOTT nausea No 02/20/24 08:03 DRYING [employer] WORKER.GDOTT Vomiting No 02/20/24 08:03 DRYING [employer] WORKER.GDOTT Anesthesia Postop Eval I: Fluid Summary Crystalloid volume administer 700 02/20/24 08:03 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
--- NOTE | 2024-02-20 08:26 | PCM.POSTANE2 ---
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.GDOTT Vomiting No 02/20/24 08:03 END F[employer]ER TW[employer]ING DEPARTMENT.GDOTT Anesthesia Postop Eval I: Fluid Summary Crystalloid volume administer 700 02/20/24 08:03 END FINDER TWISTING DEPARTMENT.GDOTT (ml) Colloids volume administered ( ml) Blood Product volume administered (ml) Total IV fluid infused 700 02/20/24 08:03 END FINDER TW[employer]ING DEPARTMENT.GDOTT Anesthesia Postop Eval I: Summary Notes Anesthesia Complication No 02/20/24 08:03 END F[employer]ER TW[employer]ING DEPARTMENT.GDOTT Anesthesia Complication Comment: Post-operative progress note Anesthesia: Postop Eval II Evaluation Mental status: Awake Pain Level: 0 nausea: No Vomiting: No Complications Anesthesia Complication: No
== END 2024-02-20 08:55 | disposition home or self-care (01) ==
LOC: SDC 05:52 → AC 05:54
PROVIDERS: PCP Family Medicine; Referring Provider Urology; Visit Provider Urology
PROC: (CPT 55874; principal; 2024-02-20 07:15)
DX: C61 Malignant neoplasm of prostate (principal); N18.32 Chronic kidney disease, stage 3b; I12.9 Hypertensive chronic kidney disease with stage 1 through stage 4 chronic kidney disease, or unspecified chronic kidney disease; N40.1 Benign prostatic hyperplasia with lower urinary tract symptoms; R35.1 Nocturia; Z86.73 Personal history of transient ischemic attack (TIA), and cerebral infarction without residual deficits; Z79.82 Long term (current) use of aspirin; Z79.899 Other long term (current) drug therapy
CPT/HCPCS: 55876; 55874; 00902; J7120; J2405; J3490

== ENCOUNTER → 2024-02-26 | Outpatient (CLI) | payer MEDICARE, SELFPAY ==
--- NOTE | 2024-02-26 15:48 | MRI_ITS ---
MR Pelvis WO/W Contrast 02/26/2024 4:52 PM COMPARISON: None CLINICAL HISTORY: 83 yo man with prostate cancer. TECHNIQUE: Axial T1-weighted and high-resolution axial T2-weighted MR images of the pelvis were obtained. Images were acquired for planning of radiation therapy. 12 cc of IV Clariscan was used. MR imaging scan done for planning of radiation therapy of prostate cancer. DISCUSSION: There is T2 hyperintense space OAR gel in place between the rectum and prostate gland.. Heterogeneous appearance of the gland is at least in part due to the known prostate cancer, as well as being consistent with benign prostatic hyperplasia. There is a significant amount of T1 hyperintensity throughout the entire peripheral zone consistent with post-biopsy hemorrhage. This limits the examination. There is an ill-defined moderately T2 hypointense lesion in the right anterior transitional zone from base to near apex. It measures approximately 2.2 x 1.6 x 1.6 cm. It is moderately bright on DWI and moderately dark on ADC map. There is questionable involvement of the right seminal vesicle. No suspicious lymphadenopathy. No evidence of osseous metastases. No definite evidence of macrocapsular extension. MRI/Pelvis W/WO Contrast IMPRESSION: Large amount of T1 hyperintense post-biopsy hemorrhage limits this examination. Despite limitations: 2.2 cm PI-RADS 5 lesion in the right anterior TZ from base to near apex. Questionable involvement of the right seminal vesicle. No suspicious lymphadenopathy. No evidence of osseous metastases. No definite evidence of macrocapsular extension. No bladder wall invasion. Electronically Signed: Juaquin Melo MD at 16:31 EDT ,
[2024-02-26 16:42] LABS: CREATININE FINGERSTICK 1.1 mg/dL (0.70-1.30); EGFR FINGERSTICK > 60.0000 mL/min (>60)
== END | disposition home or self-care (01) ==
LOC: MRI 15:47
PROVIDERS: PCP Family Medicine; Referring Provider Student in an Organized Health Care Education/Training Program; Visit Provider Student in an Organized Health Care Education/Training Program
DX: C61 Malignant neoplasm of prostate (principal)
CPT/HCPCS: 72197; A9575

== ENCOUNTER 2024-03-04 17:46 | Outpatient (RCR) | payer MEDICARE, SELFPAY ==
--- NOTE | 2024-03-04 18:54 | HP.PTEVAL_ITS ---
Patient's Visit Information Visit Information Visit Information: ELADIA KNAPP is a 83 year old M referred to Physical Therapy by Dr. Hakeem Canales MD with a diagnosis of SDH, stroke. Date of Evaluation: 03/04/24 Physical Therapist: Nadeem Garcia, DPT, OCS, CSCS Visit Plan Frequency: 2x /Week Duration: 2 Months Plan: 2x/week for 4-8 weeks(pt does not want to have PT whi8le going through prostate radiation in March and will start in April with recheck. gait training, balance and weight shifting and core adn LE strenggth appropriate, see if getting rid of cholesterol meds gets rid of symptoms(he is doing this with doctor) Subjective Subjective: Had CVa a while ago and got better. Started cholesterol meds 2 weeks ago and now has a hard time walking. Stopped taking them today adn will take 10 days to get out of system. Wants legs to get straightened out and move properly. Doing band stretches 2x/day and some chair strengthening at home from last session of PT 3 months ago. used cane prior to last two weeks and walked dogs 4 blocks at that time but for some reason cholesterol meds since september have now had deletrious effects. Now just takes dog out in yard. Lives with . 66 yrs n 03/07. Basic ADLs and clothes and bathroom and dishwashing all I. 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 Sleep is Ok. No pain. Initial stroke effected L leg and got 70% better prior to this. Objective Objective: Wallks into PT very dangerously with cane taking short steps and almost parkinsons shuffle and freeze. Unwilling to accept help and did make it 200 feet back tot table. Did much better with wh walker whcih he has at home but did not bring.. Transfers are slow and turns and thresholds cause him to shorten up in stress.. i with chair and bed trasnfers. LB aROM mod limited in all directions and no pain. HS and quad max tight with -30 90/90 test. sitting balance is good. standing balance is excellent statically but moving is his issue. LE strength 4- L hip and 4 on R, knee is 4 on L ext and flexion and 4+ on R. ankles is slightly dyscoordinated adn strength 4/5 B. coordination to reciprocal tapping in sitting is fair. reflexes 2/3 patella and achilles B. sensation LE slightly at deficit in L but due to stroke. and has not changed since then. - slump and - SLR. Biggest problem is dynamic gait and dangerous without walker, he knows this and is willing to use his wh walker until he gets better. Balance/Special Test Scores Lower Extremity Functional Score: 39 Goals Goal 1:: walk safely with wh walker or cane into PT with good step length with turning and at thresholds. Goal Time Frame: 6-8 Weeks Goal 2:: Pt feel 90% back to normal activity at home including walking dogs Goal Time Frame: 6-8 Weeks Goal 3:: LEFS 45 Goal Time Frame: 6-8 Weeks Rehabilitation Potential Physical Therapy Diagnosis: dynamic balance deficits leading to mobility concerns. Rehabilitation Potential: Questionable Anticipated Interventions Patient/Client Instruction: Educate patient on: Condition and Plan of Care For the Purpose of:: To increase tolerance to activity/condition/position and To improve gait and locomotor functions Therapeutic Exercise to Include: Strength training, Flexibilty training and Gait and locomotor training For the Purpose of:: To improve gait and locomotor functions and To improve safety Text: Thank you for the opportunity to evaluate your patient. For Medicare and Medicare HMO plans, please review the plan of care and approve it. It will need to be FAXED BACK to us at [phone] for Medicare purposes. For Medicare only, by signing this I certify the plan of care. Please let me know if there are questions or concerns regarding this plan of care. Physician Signature: Date:
--- NOTE | 2024-04-18 07:13 | HP.PT.NRP ---
Patient Information Patient Information: ELADIA KNAPP was seen in my office for initial evaluation on 03/04/24. The following Plan of Care was established for this patient: POC Established Initial Frequency: 2x /Week Initial Duration: 2 Months Anticipated Interventions Patient/Client Instruction: Educate patient on: Condition and Plan of Care For the Purpose of:: To increase tolerance to activity/condition/position and To improve gait and locomotor functions Therapeutic Exercise to Include: Strength training, Flexibilty training and Gait and locomotor training For the Purpose of:: To improve gait and locomotor functions and To improve safety Last Seen Last Seen: This patient was last seen in our office 03/04/24. Pertinent comments regarding their Physical therapy will appear below: Pt seen for IE on 03/04 and POC established. No further visits were scheduled or attended at this time. I will discontinue from my care as it has been over 6 weeks. At this point I will be discontinuing this patient from physical therapy. I would be happy to see this patient again in the future if found appropriate by the physician. Thank you! Nadeem Garcia, DPT, OCS, CSCS Balance/Gait/Functional tests Balance/Special Test Scores Lower Extremity Functional Score: 39
== END 2024-03-04 19:00 | disposition home or self-care (01) ==
LOC: PT 17:46
PROVIDERS: PCP Family Medicine; Referring Provider Family Medicine; Visit Provider Family Medicine
DX: Z86.73 Personal history of transient ischemic attack (TIA), and cerebral infarction without residual deficits (principal); Z87.828 Personal history of other (healed) physical injury and trauma
CPT/HCPCS: 97162

== ENCOUNTER → 2024-05-22 | Outpatient (CLI) | payer MEDICARE, SELFPAY ==
[2024-05-22 11:46] LABS: PSA,Total- Diagnostic 0.07 ng/mL (0.0-4.0)
== END | disposition home or self-care (01) ==
PROVIDERS: PCP Family Medicine; Referring Provider Urology; Visit Provider Urology
DX: C61 Malignant neoplasm of prostate (principal)
CPT/HCPCS: 36415; 84153

== ENCOUNTER → 2024-08-25 | Outpatient (CLI) | payer MEDICARE, SELFPAY ==
[2024-08-25 12:27] LABS: PSA,Total- Diagnostic 0.02 ng/mL (0.0-4.0)
== END | disposition home or self-care (01) ==
PROVIDERS: PCP Family Medicine; Referring Provider Urology; Visit Provider Urology
DX: C61 Malignant neoplasm of prostate (principal)
CPT/HCPCS: 36415; 84153